=== PATIENT | female | born 1985 | race Caucasian/White ===

== ENCOUNTER → 2017-09-08 | Outpatient (CLI) | payer OTHER ==
[~2017-09-08] MED LIST: ACET325 PO; BUPR100ER PO; CEFU500T30 PO; CIPR500 PO; GABA100 PO; HYDMOR2 PO; KETO10 PO; Klor-Con M1010 MEQ PO; METR500 PO; Nicoderm Cq1 EACH TD; OMEPRAZOLE MAGN20 MG PO; ONDA4ODT MM; OXYC1TAB11; POTCHL20ER PO; SACC250C; SACC250C PO; TRAM50 PO
[2017-09-08 09:29] LABS: BASOPHILS ABSOLUTE AUTO 0.02 K/mm3 (0.00-0.23); BASOPHILS PERCENT AUTO 0 % (0-2); EOSINOPHILS PERCENT AUTO 2 % (0-6); Hematocrit 40.4 % (33.0-51.0); Hemoglobin 14.2 g/dL (11.5-16.0); IMMATURE GRAN ABSOLUTE AUTO 0.02 K/mm3 (0.00-0.10); IMMATURE GRAN PERCENT AUTO 0 % (0-1); LYMPHOCYTES ABSOLUTE AUTO 0.85 K/mm3 (0.84-5.20); LYMPHOCYTES PERCENT AUTO 14 % (21-46); MONOCYTES ABSOLUTE AUTO 0.39 K/mm3 (0.16-1.47); MONOCYTES PERCENT AUTO 6 % (4-13); Mean Corpuscular HGB Conc 35.1 g/dL (31.5-36.5); Mean Corpuscular Volume 100 fL (80-100); Mean Platelet Volume 9.9 fL (9.1-12.4); NEUTROPHILS ABSOLUTE AUTO 4.88 K/mm3 (1.96-9.15); NEUTROPHILS PERCENT AUTO 78 % (41-73); Platelet Count 184 K/mm3 (150-400); RDW Coefficient Variation 12.7 % (11.7-14.2); RDW Standard Deviation 46.5 fL (35.1-46.3); Red Blood Cell Count 4.06 M/mm3 (3.80-5.20); White Blood Cell Count 6.26 K/mm3 (4.00-11.30)
[2017-09-08 09:30] LABS: Alanine Aminotransfer (ALT/SGP 41 U/L (12-78); Albumin, Blood 4.3 g/dL (3.4-5.0); Albumin/Globulin Ratio 1.3 (0.8-1.8); Alk Phos 103 U/L (40-126); Anion Gap 10 mmol/L (6-16); Aspartate Aminotrans (AST/SGOT 76 U/L (12-37); Bilirubin, Total 1.4 mg/dL (0.1-1.0); Blood Urea Nitrogen 14 mg/dL (8-24); Bun/Creatinine Ratio 20.9 (12.0-20.0); CO2, Blood 30 mmol/L (21-32); Calcium, Blood 8.9 mg/dL (8.5-10.1); Chloride, Blood 96 mmol/L (98-108); Creatinine, Blood 0.67 mg/dL (0.40-1.00); Globulin, Blood 3.2 g/dL (2.2-4.0); Glomerular Filtration Rate >60 (60-); Glucose, Blood 120 mg/dL (70-99); Potassium, Blood 3.1 mmol/L (3.5-5.5); Sodium, Blood 136 mmol/L (136-145); Total Protein, Blood 7.5 g/dL (6.4-8.2)
== END ==
LOC: LAB EV 09:14
PROVIDERS: Physician Assistant Medical
DX: R10.84 Generalized abdominal pain (principal)
CPT/HCPCS: 80053; 83690; 85025

== ENCOUNTER → 2017-09-09 | Outpatient (CLI) | payer OTHER ==
[2017-09-09 09:16] LABS: BASOPHILS ABSOLUTE AUTO 0.02 K/mm3 (0.00-0.23); BASOPHILS PERCENT AUTO 1 % (0-2); EOSINOPHILS ABSOLUTE AUTO 0.19 K/mm3 (0.00-0.68); EOSINOPHILS PERCENT AUTO 5 % (0-6); Hematocrit 39.8 % (33.0-51.0); Hemoglobin 13.9 g/dL (11.5-16.0); IMMATURE GRAN ABSOLUTE AUTO 0.01 K/mm3 (0.00-0.10); IMMATURE GRAN PERCENT AUTO 0 % (0-1); LYMPHOCYTES PERCENT AUTO 24 % (21-46); MONOCYTES ABSOLUTE AUTO 0.39 K/mm3 (0.16-1.47); MONOCYTES PERCENT AUTO 10 % (4-13); Mean Corpuscular HGB 35.4 pg (26.0-34.0); Mean Corpuscular HGB Conc 34.9 g/dL (31.5-36.5); Mean Corpuscular Volume 101 fL (80-100); Mean Platelet Volume 10.7 fL (9.1-12.4); NEUTROPHILS PERCENT AUTO 60 % (41-73); Platelet Count 164 K/mm3 (150-400); RDW Coefficient Variation 12.7 % (11.7-14.2); RDW Standard Deviation 47.6 fL (35.1-46.3); Red Blood Cell Count 3.93 M/mm3 (3.80-5.20); White Blood Cell Count 3.81 K/mm3 (4.00-11.30)
[2017-09-09 09:25] LABS: Alanine Aminotransfer (ALT/SGP 34 U/L (12-78); Albumin, Blood 4.1 g/dL (3.4-5.0); Albumin/Globulin Ratio 1.4 (0.8-1.8); Alk Phos 104 U/L (40-126); Anion Gap 12 mmol/L (6-16); Aspartate Aminotrans (AST/SGOT 67 U/L (12-37); Bilirubin, Total 1.7 mg/dL (0.1-1.0); Blood Urea Nitrogen 6 mg/dL (8-24); Bun/Creatinine Ratio 10.3 (12.0-20.0); CO2, Blood 28 mmol/L (21-32); Calcium, Blood 8.9 mg/dL (8.5-10.1); Chloride, Blood 97 mmol/L (98-108); Creatinine, Blood 0.58 mg/dL (0.40-1.00); Glomerular Filtration Rate >60 (60-); Glucose, Blood 105 mg/dL (70-99); Potassium, Blood 3.1 mmol/L (3.5-5.5); Sodium, Blood 137 mmol/L (136-145); Total Protein, Blood 7.1 g/dL (6.4-8.2)
== END | disposition home or self-care (01) ==
LOC: LAB EV 09:06
PROVIDERS: Physician Assistant Surgical
DX: R10.9 Unspecified abdominal pain (principal)
CPT/HCPCS: 80053; 83690; 85025

== ENCOUNTER → 2018-03-03 | Outpatient (CLI) | payer OTHER ==
[~2018-03-03] MED LIST changes: -BUPR100ER PO; -CIPR500 PO; -GABA100 PO; -HYDMOR2 PO; -KETO10 PO; -METR500 PO; -Nicoderm Cq1 EACH TD; -OMEPRAZOLE MAGN20 MG PO; -OXYC1TAB11; -POTCHL20ER PO; -SACC250C; -SACC250C PO; -TRAM50 PO
== END | disposition home or self-care (01) ==
LOC: LAB SHORT 08:30 → LAB EV 08:30
DX: N12 Tubulo-interstitial nephritis, not specified as acute or chronic (principal)
CPT/HCPCS: 87077; 87086; 87186

== ENCOUNTER 2018-03-04 19:46 | Inpatient (IN) | payer OTHER ==
[~2018-03-04] VITALS: Ht 175.3 cm; Wt 64.5 kg
[2018-03-04] MEDS ORDERED: CEFU500T30 PO (19:54)
[2018-03-04 22:25] LABS: Free Thyroxine 1.12 ng/dL (0.70-1.60)
[2018-03-04 22:28] LABS: Thyroid Stimulating Hormone 1.01 uIU/mL (0.360-4.800); Triiodothyronine, Free 1.47 pg/mL (2.18-3.98)
[2018-03-04 22:33] LABS: Magnesium, Blood 1.1 mg/dL (1.6-2.4); Potassium, Blood 1.9 mmol/L (3.5-5.5)
[2018-03-05 00:12] LABS: Source, Urine Clean Catch
[2018-03-05 00:16] LABS: Bilirubin, Urine Neg (Neg); Blood, Urine 2+ (Neg); Glucose Qualitative, Urine Neg (Neg); Ketones, Urine Neg (Neg); Leukocyte Esterase, Urine 2+ (Neg); Nitrite, Urine Neg (Neg); Protein, Urine 2+ (Neg); Specific Gravity, Urine 1.005 (1.003-1.022); Urobilinogen, Urine NORM (Normal); pH, Urine 6.5 (5.0-8.0)
[2018-03-05 00:23] LABS: Appearance, Urine Hazy (Clear); Color, Urine Yellow (P-Yellow)
[2018-03-05 00:24] LABS: Bacteria Few /hpf; Mucus Light (0-Heavy); Red Blood Cells, Urine 0-2 /hpf (0-2); Squamous Epithelial Cells Few /hpf (Few)
[2018-03-05 04:11] LABS: Hematocrit 29.2 % (33.0-51.0); Hemoglobin 10.3 g/dL (11.5-16.0); Mean Corpuscular HGB 35.6 pg (26.0-34.0); Mean Corpuscular HGB Conc 35.3 g/dL (31.5-36.5); Mean Corpuscular Volume 101 fL (80-100); Platelet Count 82 K/mm3 (150-400); RDW Coefficient Variation 13.2 % (11.7-14.2); RDW Standard Deviation 48.6 fL (35.1-46.3); Red Blood Cell Count 2.89 M/mm3 (3.80-5.20); White Blood Cell Count 11.11 K/mm3 (4.00-11.30)
[2018-03-05 04:39] LABS: Alanine Aminotransfer (ALT/SGP 11 U/L (12-78); Albumin, Blood 2.2 g/dL (3.4-5.0); Albumin/Globulin Ratio 0.7 (0.8-1.8); Alk Phos 82 U/L (50-136); Anion Gap 10 mmol/L (6-16); Aspartate Aminotrans (AST/SGOT 26 U/L (12-37); Bilirubin, Total 0.5 mg/dL (0.1-1.0); Blood Urea Nitrogen 11 mg/dL (8-24); Bun/Creatinine Ratio 12.5 (12.0-20.0); CO2, Blood 28 mmol/L (21-32); Calcium, Blood 7.1 mg/dL (8.5-10.1); Chloride, Blood 102 mmol/L (98-108); Creatinine, Blood 0.88 mg/dL (0.40-1.00); Globulin, Blood 3.2 g/dL (2.2-4.0); Glomerular Filtration Rate >60 (60-); Glucose, Blood 85 mg/dL (70-99); Potassium, Blood 2.4 mmol/L (3.5-5.5); Total Protein, Blood 5.4 g/dL (6.4-8.2)
[2018-03-05 04:45] LABS: Sodium, Blood 140 mmol/L (136-145)
[2018-03-06 05:30] LABS: Anion Gap 9 mmol/L (6-16); Blood Urea Nitrogen 8 mg/dL (8-24); Bun/Creatinine Ratio 11.3 (12.0-20.0); CO2, Blood 25 mmol/L (21-32); Calcium, Blood 7.9 mg/dL (8.5-10.1); Chloride, Blood 106 mmol/L (98-108); Creatinine, Blood 0.71 mg/dL (0.40-1.00); Glomerular Filtration Rate >60 (60-); Glucose, Blood 102 mg/dL (70-99); Potassium, Blood 3.3 mmol/L (3.5-5.5); Sodium, Blood 140 mmol/L (136-145)
[2018-03-06] MEDS ORDERED: ONDA4ODT MM (09:20)
[2018-03-06] MEDS ORDERED: Klor-Con M1010 MEQ PO (09:23)
[2018-03-06] MEDS ORDERED: ACET325 PO (09:23)
== END 2018-03-06 11:32 | disposition home or self-care (01) | DRG 872 ==
LOC: ER 19:46 → PCU 19:47
PROVIDERS: Emergency Medicine; Internal Medicine
DX: A41.51 Sepsis due to Escherichia coli [E. coli] (principal); N17.9 Acute kidney failure, unspecified; N39.0 Urinary tract infection, site not specified; N10 Acute pyelonephritis; E87.6 Hypokalemia; E86.0 Dehydration; Z87.440 Personal history of urinary (tract) infections; E83.42 Hypomagnesemia; F17.210 Nicotine dependence, cigarettes, uncomplicated
CPT/HCPCS: 36415; 74176; 80048; 80053; 81001; 83690; 83735; 84132; 84439; 84443; 84481; 84703; 85027; 87086; 93005; 93010; J0696; J1650; J3010; J3475; J3480; J7030

== ENCOUNTER → 2018-03-04 | Outpatient (CLI) | payer OTHER ==
[2018-03-04 18:51] LABS: Hematocrit 36.3 % (33.0-51.0); Hemoglobin 13.2 g/dL (11.5-16.0); Mean Corpuscular HGB 36.3 pg (26.0-34.0); Mean Corpuscular HGB Conc 36.4 g/dL (31.5-36.5); Mean Corpuscular Volume 100 fL (80-100); Mean Platelet Volume 10.9 fL (9.1-12.4); Platelet Count 98 K/mm3 (150-400); RDW Coefficient Variation 13.2 % (11.7-14.2); Red Blood Cell Count 3.64 M/mm3 (3.80-5.20); White Blood Cell Count 17.36 K/mm3 (4.00-11.30)
[2018-03-04 19:05] LABS: Bun/Creatinine Ratio 9.6 (12.0-20.0); Calcium, Blood 8.8 mg/dL (8.5-10.1); Creatinine, Blood 1.36 mg/dL (0.40-1.00)
[2018-03-04 19:15] LABS: Potassium, Blood 1.8 mmol/L (3.5-5.5)
[2018-03-04 19:41] LABS: BAND PERCENT MAN 7 % (0-8); BASOPHILS PERCENT MAN 0 % (0-2); EOSINOPHILS PERCENT MAN 0 % (0-6); LYMPHOCYTES ABSOLUTE MAN 1.38 K/mm3 (0.84-5.20); LYMPHOCYTES PERCENT MAN 8 % (21-46); MONOCYTES PERCENT MAN 11 % (4-13); NEUTROPHILS ABSOLUTE MAN 14.06 K/mm3 (1.96-9.15); SEG NEUTROPHILS PERCENT MAN 74 % (41-73); TOTAL CELLS COUNTED 100
== END ==
LOC: LAB SHORT 18:47 → LAB EV 18:47
PROVIDERS: Nurse Practitioner
DX: N12 Tubulo-interstitial nephritis, not specified as acute or chronic (principal)
CPT/HCPCS: 80048; 85025

== ENCOUNTER 2018-06-23 17:55 | Inpatient (IN) | payer OTHER ==
[~2018-06-23] VITALS: Ht 172.7 cm; Wt 59.0 kg
[~2018-06-23 17:55] MED LIST changes: +CIPR500 PO; +HYDMOR2 PO; +METR500 PO; +Nicoderm Cq1 EACH TD; +OMEPRAZOLE MAGN20 MG PO; +POTCHL20ER PO; +SACC250C PO; +TRAM50 PO
[2018-06-23 19:24] LABS: BASOPHILS ABSOLUTE AUTO 0.05 K/mm3 (0.00-0.23); BASOPHILS PERCENT AUTO 0 % (0-2); EOSINOPHILS ABSOLUTE AUTO 0.42 K/mm3 (0.00-0.68); EOSINOPHILS PERCENT AUTO 3 % (0-6); Hemoglobin 14.4 g/dL (11.5-16.0); IMMATURE GRAN ABSOLUTE AUTO 0.05 K/mm3 (0.00-0.10); IMMATURE GRAN PERCENT AUTO 0 % (0-1); LYMPHOCYTES ABSOLUTE AUTO 2.92 K/mm3 (0.84-5.20); LYMPHOCYTES PERCENT AUTO 20 % (21-46); MONOCYTES ABSOLUTE AUTO 0.86 K/mm3 (0.16-1.47); MONOCYTES PERCENT AUTO 6 % (4-13); Mean Corpuscular HGB 33.8 pg (26.0-34.0); Mean Corpuscular HGB Conc 33.5 g/dL (31.5-36.5); Mean Platelet Volume 9.5 fL (9.1-12.4); NEUTROPHILS ABSOLUTE AUTO 10.26 K/mm3 (1.96-9.15); NEUTROPHILS PERCENT AUTO 71 % (41-73); Platelet Count 501 K/mm3 (150-400); RDW Coefficient Variation 13.8 % (11.7-14.2); Red Blood Cell Count 4.26 M/mm3 (3.80-5.20); White Blood Cell Count 14.56 K/mm3 (4.00-11.30)
[2018-06-23 19:27] LABS: Mean Corpuscular Volume 101 fL (80-100)
[2018-06-23 19:49] LABS: Alanine Aminotransfer (ALT/SGP 15 U/L (12-78); Albumin, Blood 3.7 g/dL (3.4-5.0); Albumin/Globulin Ratio 0.8 (0.8-1.8); Alk Phos 124 U/L (50-136); Anion Gap 12 mmol/L (6-16); Aspartate Aminotrans (AST/SGOT 17 U/L (12-37); Bilirubin, Total 0.2 mg/dL (0.1-1.0); Blood Urea Nitrogen 13 mg/dL (8-24); Bun/Creatinine Ratio 23.2 (12.0-20.0); CO2, Blood 27 mmol/L (21-32); Chloride, Blood 96 mmol/L (98-108); Creatinine, Blood 0.56 mg/dL (0.40-1.00); Globulin, Blood 4.6 g/dL (2.2-4.0); Glomerular Filtration Rate >60 (60-); Glucose, Blood 82 mg/dL (70-99); Potassium, Blood 3.3 mmol/L (3.5-5.5); Sodium, Blood 135 mmol/L (136-145); Total Protein, Blood 8.3 g/dL (6.4-8.2)
[2018-06-24 00:49] LABS: Source, Urine Clean Catch
[2018-06-24 00:50] LABS: Bilirubin, Urine Neg (Neg); Blood, Urine Neg (Neg); Glucose Qualitative, Urine Neg (Neg); Ketones, Urine Neg (Neg); Leukocyte Esterase, Urine 1+ (Neg); Nitrite, Urine Neg (Neg); Protein, Urine 2+ (Neg); Specific Gravity, Urine 1.015 (1.003-1.022); Urobilinogen, Urine NORM (Normal); pH, Urine 6.5 (5.0-8.0)
[2018-06-24 00:51] LABS: Appearance, Urine Clear (Clear); Color, Urine Yellow (P-Yellow)
[2018-06-24 01:02] LABS: Bacteria Rare /hpf; Red Blood Cells, Urine Not Seen /hpf (0-2); Squamous Epithelial Cells Few /hpf (Few); White Blood Cells, Urine Rare /hpf (0-5)
[2018-06-24 05:08] LABS: Hematocrit 35.5 % (33.0-51.0); Hemoglobin 11.7 g/dL (11.5-16.0); Mean Corpuscular HGB 33.4 pg (26.0-34.0); Mean Corpuscular Volume 101 fL (80-100); Mean Platelet Volume 9.8 fL (9.1-12.4); Platelet Count 347 K/mm3 (150-400); RDW Standard Deviation 52.2 fL (35.1-46.3)
[2018-06-24 05:36] LABS: Anion Gap 12 mmol/L (6-16); Blood Urea Nitrogen 9 mg/dL (8-24); Bun/Creatinine Ratio 19.5 (12.0-20.0); CO2, Blood 23 mmol/L (21-32); Calcium, Blood 8.3 mg/dL (8.5-10.1); Chloride, Blood 104 mmol/L (98-108); Creatinine, Blood 0.46 mg/dL (0.40-1.00); Glomerular Filtration Rate >60 (60-); Glucose, Blood 100 mg/dL (70-99); Sodium, Blood 139 mmol/L (136-145)
[2018-06-25 06:35] LABS: BASOPHILS ABSOLUTE AUTO 0.04 K/mm3 (0.00-0.23); BASOPHILS PERCENT AUTO 1 % (0-2); EOSINOPHILS PERCENT AUTO 6 % (0-6); IMMATURE GRAN ABSOLUTE AUTO 0.01 K/mm3 (0.00-0.10); IMMATURE GRAN PERCENT AUTO 0 % (0-1); LYMPHOCYTES ABSOLUTE AUTO 1.55 K/mm3 (0.84-5.20); LYMPHOCYTES PERCENT AUTO 18 % (21-46); MONOCYTES ABSOLUTE AUTO 0.73 K/mm3 (0.16-1.47); MONOCYTES PERCENT AUTO 8 % (4-13); Mean Corpuscular HGB 33.2 pg (26.0-34.0); Mean Corpuscular HGB Conc 32.4 g/dL (31.5-36.5); Mean Corpuscular Volume 103 fL (80-100); Mean Platelet Volume 10.1 fL (9.1-12.4); NEUTROPHILS ABSOLUTE AUTO 5.85 K/mm3 (1.96-9.15); NEUTROPHILS PERCENT AUTO 67 % (41-73); Platelet Count 333 K/mm3 (150-400); RDW Coefficient Variation 13.8 % (11.7-14.2); RDW Standard Deviation 52.2 fL (35.1-46.3); Red Blood Cell Count 3.31 M/mm3 (3.80-5.20); White Blood Cell Count 8.68 K/mm3 (4.00-11.30)
[2018-06-25 06:57] LABS: Percent Saturation 19.7 % (15.0-50.0)
[2018-06-25 07:01] LABS: Alanine Aminotransfer (ALT/SGP 9 U/L (12-78); Albumin, Blood 2.5 g/dL (3.4-5.0); Albumin/Globulin Ratio 0.7 (0.8-1.8); Alk Phos 91 U/L (50-136); Anion Gap 6 mmol/L (6-16); Aspartate Aminotrans (AST/SGOT 11 U/L (12-37); Bilirubin, Total 0.4 mg/dL (0.1-1.0); Blood Urea Nitrogen 12 mg/dL (8-24); Bun/Creatinine Ratio 28.3 (12.0-20.0); CO2, Blood 28 mmol/L (21-32); Calcium, Blood 8.6 mg/dL (8.5-10.1); Chloride, Blood 103 mmol/L (98-108); Creatinine, Blood 0.42 mg/dL (0.40-1.00); Globulin, Blood 3.6 g/dL (2.2-4.0); Glomerular Filtration Rate >60 (60-); Glucose, Blood 96 mg/dL (70-99); Potassium, Blood 4.1 mmol/L (3.5-5.5); Sodium, Blood 137 mmol/L (136-145); Total Protein, Blood 6.1 g/dL (6.4-8.2)
[2018-06-26 11:40] LABS: BASOPHILS ABSOLUTE AUTO 0.04 K/mm3 (0.00-0.23); BASOPHILS PERCENT AUTO 0 % (0-2); EOSINOPHILS PERCENT AUTO 6 % (0-6); Hematocrit 35.9 % (33.0-51.0); Hemoglobin 11.6 g/dL (11.5-16.0); IMMATURE GRAN ABSOLUTE AUTO 0.02 K/mm3 (0.00-0.10); IMMATURE GRAN PERCENT AUTO 0 % (0-1); LYMPHOCYTES ABSOLUTE AUTO 2.38 K/mm3 (0.84-5.20); LYMPHOCYTES PERCENT AUTO 25 % (21-46); MONOCYTES ABSOLUTE AUTO 0.66 K/mm3 (0.16-1.47); MONOCYTES PERCENT AUTO 7 % (4-13); Mean Corpuscular HGB 33.2 pg (26.0-34.0); Mean Corpuscular HGB Conc 32.3 g/dL (31.5-36.5); Mean Corpuscular Volume 103 fL (80-100); Mean Platelet Volume 10.1 fL (9.1-12.4); NEUTROPHILS ABSOLUTE AUTO 5.84 K/mm3 (1.96-9.15); NEUTROPHILS PERCENT AUTO 61 % (41-73); Platelet Count 417 K/mm3 (150-400); RDW Standard Deviation 53.2 fL (35.1-46.3); Red Blood Cell Count 3.49 M/mm3 (3.80-5.20); White Blood Cell Count 9.54 K/mm3 (4.00-11.30)
[2018-06-26 11:52] LABS: Alanine Aminotransfer (ALT/SGP 12 U/L (12-78); Albumin, Blood 2.7 g/dL (3.4-5.0); Albumin/Globulin Ratio 0.6 (0.8-1.8); Alk Phos 117 U/L (50-136); Anion Gap 7 mmol/L (6-16); Aspartate Aminotrans (AST/SGOT 21 U/L (12-37); Bilirubin, Total 0.2 mg/dL (0.1-1.0); Blood Urea Nitrogen 6 mg/dL (8-24); Bun/Creatinine Ratio 12.7 (12.0-20.0); CO2, Blood 28 mmol/L (21-32); Calcium, Blood 9.3 mg/dL (8.5-10.1); Chloride, Blood 104 mmol/L (98-108); Creatinine, Blood 0.47 mg/dL (0.40-1.00); Globulin, Blood 4.4 g/dL (2.2-4.0); Glomerular Filtration Rate >60 (60-); Glucose, Blood 105 mg/dL (70-99); Potassium, Blood 4.3 mmol/L (3.5-5.5); Sodium, Blood 139 mmol/L (136-145); Total Protein, Blood 7.1 g/dL (6.4-8.2)
[2018-06-26] MEDS ORDERED: ACET325 PO (14:08)
[2018-06-26] MEDS ORDERED: KETO10 PO (14:09)
[2018-06-26] MEDS ORDERED: TRAM50 PO (14:09)
== END 2018-06-26 17:06 | disposition home or self-care (01) | DRG 438 ==
LOC: ER 17:55 → MEDS 17:56
PROVIDERS: Internal Medicine; Nurse Practitioner Acute Care; Physician Assistant
PROC: 0DJ08ZZ Inspection of Upper Intestinal Tract, Via Natural or Artificial Opening Endoscopic (ICD-10-PCS; principal; 2018-06-26)
DX: K85.90 Acute pancreatitis without necrosis or infection, unspecified (principal); I81 Portal vein thrombosis; K86.3 Pseudocyst of pancreas; D64.9 Anemia, unspecified; K86.0 Alcohol-induced chronic pancreatitis; E87.6 Hypokalemia; F32.9 Major depressive disorder, single episode, unspecified; F17.210 Nicotine dependence, cigarettes, uncomplicated; K31.84 Gastroparesis; F10.20 Alcohol dependence, uncomplicated
CPT/HCPCS: 36415; 74160; 80048; 80053; 81001; 82728; 83540; 83550; 83690; 85025; 85027; 96374; 96375; 96376; 99285-25; C1751; G0378; J1885; J2405; J2765; J3010; J7030; Q9967

== ENCOUNTER 2018-08-08 00:45 | Day surgery (SDC) | payer OTHER ==
[~2018-08-08 00:45] MED LIST changes: +BUPR100ER PO; +GABA100 PO; +KETO10 PO; +OXYC1TAB11; +SACC250C
[2018-08-08 10:18] LABS: BASOPHILS ABSOLUTE AUTO 0.06 K/mm3 (0.00-0.23); BASOPHILS PERCENT AUTO 1 % (0-2); EOSINOPHILS ABSOLUTE AUTO 0.38 K/mm3 (0.00-0.68); EOSINOPHILS PERCENT AUTO 4 % (0-6); Hematocrit 35.4 % (33.0-51.0); Hemoglobin 11.2 g/dL (11.5-16.0); IMMATURE GRAN ABSOLUTE AUTO 0.04 K/mm3 (0.00-0.10); IMMATURE GRAN PERCENT AUTO 0 % (0-1); LYMPHOCYTES ABSOLUTE AUTO 2.45 K/mm3 (0.84-5.20); LYMPHOCYTES PERCENT AUTO 24 % (21-46); MONOCYTES ABSOLUTE AUTO 0.61 K/mm3 (0.16-1.47); MONOCYTES PERCENT AUTO 6 % (4-13); Mean Corpuscular HGB 30.1 pg (26.0-34.0); Mean Corpuscular HGB Conc 31.6 g/dL (31.5-36.5); Mean Corpuscular Volume 95 fL (80-100); Mean Platelet Volume 9.9 fL (9.1-12.4); NEUTROPHILS ABSOLUTE AUTO 6.74 K/mm3 (1.96-9.15); NEUTROPHILS PERCENT AUTO 66 % (41-73); Platelet Count 317 K/mm3 (150-400); RDW Coefficient Variation 14.7 % (11.7-14.2); RDW Standard Deviation 51.2 fL (35.1-46.3); Red Blood Cell Count 3.72 M/mm3 (3.80-5.20); White Blood Cell Count 10.28 K/mm3 (4.00-11.30)
[2018-08-08 10:40] LABS: C-REACTIVE PROTEIN, EXT RANGE <0.290 mg/dL (0.000-0.300); Magnesium, Blood 1.9 mg/dL (1.6-2.4)
[2018-08-08 10:45] LABS: Alanine Aminotransfer (ALT/SGP 43 U/L (12-78); Albumin, Blood 3.7 g/dL (3.4-5.0); Albumin/Globulin Ratio 0.9 (0.8-1.8); Alk Phos 153 U/L (50-136); Anion Gap 8 mmol/L (6-16); Aspartate Aminotrans (AST/SGOT 24 U/L (12-37); Bilirubin, Total 0.6 mg/dL (0.1-1.0); Blood Urea Nitrogen 14 mg/dL (8-24); Bun/Creatinine Ratio 31.1 (12.0-20.0); CO2, Blood 25 mmol/L (21-32); Calcium, Blood 9.6 mg/dL (8.5-10.1); Chloride, Blood 107 mmol/L (98-108); Creatinine, Blood 0.45 mg/dL (0.40-1.00); Glomerular Filtration Rate >60 (60-); Glucose, Blood 136 mg/dL (70-99); Phosphorus, Blood 4.3 mg/dL (2.5-4.9); Potassium, Blood 3.6 mmol/L (3.5-5.5); Sodium, Blood 140 mmol/L (136-145); Total Protein, Blood 7.7 g/dL (6.4-8.2); Triglycerides 199 mg/dL (30-140)
== END 2018-08-08 10:45 | disposition home or self-care (01) ==
LOC: ATC 00:45
DX: K86.0 Alcohol-induced chronic pancreatitis (principal)
CPT/HCPCS: 36592; 80053; 83735; 84100; 84134; 84478; 85025; 86140

== ENCOUNTER 2018-08-12 07:27 | Inpatient (IN) | payer OTHER ==
[~2018-08-12] VITALS: Ht 175.3 cm; Wt 56.9 kg
[~2018-08-12 07:27] MED LIST changes: -SACC250C
[2018-08-12 08:04] LABS: BASOPHILS ABSOLUTE AUTO 0.05 K/mm3 (0.00-0.23); BASOPHILS PERCENT AUTO 1 % (0-2); EOSINOPHILS ABSOLUTE AUTO 0.44 K/mm3 (0.00-0.68); EOSINOPHILS PERCENT AUTO 5 % (0-6); Hematocrit 34.7 % (33.0-51.0); Hemoglobin 11.1 g/dL (11.5-16.0); IMMATURE GRAN ABSOLUTE AUTO 0.02 K/mm3 (0.00-0.10); IMMATURE GRAN PERCENT AUTO 0 % (0-1); LYMPHOCYTES ABSOLUTE AUTO 2.91 K/mm3 (0.84-5.20); LYMPHOCYTES PERCENT AUTO 30 % (21-46); MONOCYTES ABSOLUTE AUTO 0.85 K/mm3 (0.16-1.47); MONOCYTES PERCENT AUTO 9 % (4-13); Mean Corpuscular HGB 29.8 pg (26.0-34.0); Mean Corpuscular Volume 93 fL (80-100); Mean Platelet Volume 9.8 fL (9.1-12.4); NEUTROPHILS ABSOLUTE AUTO 5.36 K/mm3 (1.96-9.15); NEUTROPHILS PERCENT AUTO 56 % (41-73); Platelet Count 315 K/mm3 (150-400); RDW Coefficient Variation 14.8 % (11.7-14.2); RDW Standard Deviation 51.3 fL (35.1-46.3); Red Blood Cell Count 3.72 M/mm3 (3.80-5.20); White Blood Cell Count 9.63 K/mm3 (4.00-11.30)
[2018-08-12 08:05] LABS: Calcium, Ionized (POC) 1.15 mmol/L (1.10-1.46); Chloride (POC) 103 mmol/L (98-108); Creatinine (POC) 0.4 mg/dL (0.6-1.0); Glucose (ISTAT POC) 105 mg/dL (70-99); Hemoglobin (POC) 11.6 g/dL (12.0-16.0); Potassium (POC) 3.5 mmol/L (3.5-5.5); Sodium (POC) 140 mmol/L (135-148); Total CO2 (POC) 28 mmol/L (21-32)
[2018-08-12 08:23] LABS: Alanine Aminotransfer (ALT/SGP 50 U/L (12-78); Albumin, Blood 3.4 g/dL (3.4-5.0); Albumin/Globulin Ratio 0.9 (0.8-1.8); Alk Phos 137 U/L (50-136); Anion Gap 7 mmol/L (6-16); Aspartate Aminotrans (AST/SGOT 42 U/L (12-37); Beta HCG, Quantitative, Serum <1 mIU/mL (0-3); Bilirubin, Total 0.5 mg/dL (0.1-1.0); Blood Urea Nitrogen 13 mg/dL (8-24); Bun/Creatinine Ratio 27.7 (12.0-20.0); CO2, Blood 28 mmol/L (21-32); Calcium, Blood 8.7 mg/dL (8.5-10.1); Chloride, Blood 107 mmol/L (98-108); Creatinine, Blood 0.47 mg/dL (0.40-1.00); Ethanol (Alcohol), Blood, Med <3 mg/dL; Globulin, Blood 3.7 g/dL (2.2-4.0); Glomerular Filtration Rate >60 (60-); Glucose, Blood 102 mg/dL (70-99); Potassium, Blood 3.5 mmol/L (3.5-5.5); Sodium, Blood 142 mmol/L (136-145); Total Protein, Blood 7.1 g/dL (6.4-8.2)
[2018-08-12 10:20] LABS: U Amphetamine Screen Not Detected; U Barbituate Screen Not Detected; U Benzodiazapine Screen Not Detected; U Buprenorphine Screen Not Detected; U Cannabinoids Screen Not Detected; U Cocaine Screen Not Detected; U Methadone Screen Not Detected; U Methamphetamine Screen Not Detected; U Opiates Screen DETECTED; U Oxycodone Screen Not Detected; U Phencyclidine Screen Not Detected; U Propoxyphene Screen Not Detected
[2018-08-12] MEDS ORDERED: CREON DR 36,001 EACH PO (14:21)
[2018-08-13 05:47] LABS: Anion Gap 7 mmol/L (6-16); Blood Urea Nitrogen 16 mg/dL (8-24); Bun/Creatinine Ratio 34.2 (12.0-20.0); CO2, Blood 30 mmol/L (21-32); Calcium, Blood 8.6 mg/dL (8.5-10.1); Chloride, Blood 103 mmol/L (98-108); Creatinine, Blood 0.47 mg/dL (0.40-1.00); Glomerular Filtration Rate >60 (60-); Glucose, Blood 106 mg/dL (70-99); Phosphorus, Blood 4.6 mg/dL (2.5-4.9); Potassium, Blood 4.2 mmol/L (3.5-5.5); Sodium, Blood 140 mmol/L (136-145); Triglycerides 108 mg/dL (30-140)
[2018-08-14 04:50] LABS: Anion Gap 7 mmol/L (6-16); Blood Urea Nitrogen 17 mg/dL (8-24); Bun/Creatinine Ratio 40.9 (12.0-20.0); CO2, Blood 29 mmol/L (21-32); Calcium, Blood 8.8 mg/dL (8.5-10.1); Chloride, Blood 102 mmol/L (98-108); Creatinine, Blood 0.42 mg/dL (0.40-1.00); Glomerular Filtration Rate >60 (60-); Glucose, Blood 98 mg/dL (70-99); Magnesium, Blood 2.1 mg/dL (1.6-2.4); Phosphorus, Blood 4.7 mg/dL (2.5-4.9); Potassium, Blood 4.7 mmol/L (3.5-5.5); Sodium, Blood 138 mmol/L (136-145)
[2018-08-14] MEDS ORDERED: OXYC5 PO (15:59)
== END 2018-08-14 16:13 | disposition home or self-care (01) | DRG 439 ==
LOC: ER 07:27 → MEDS 13:04 → SURS 14:09
PROVIDERS: Emergency Medicine; Internal Medicine
DX: K85.90 Acute pancreatitis without necrosis or infection, unspecified (principal); K86.3 Pseudocyst of pancreas; K86.1 Other chronic pancreatitis; K21.9 Gastro-esophageal reflux disease without esophagitis; F10.20 Alcohol dependence, uncomplicated; F17.200 Nicotine dependence, unspecified, uncomplicated; Z87.440 Personal history of urinary (tract) infections; Z79.899 Other long term (current) drug therapy
CPT/HCPCS: 74160; 80047; 80048; 80053; 82947; 83690; 83735; 84100; 84478; 84702; 85014; 85025; 96361; 96374; 96375; 96376; 99285-25; G0480; J1170; J2405; J7120; Q9967

== ENCOUNTER 2018-08-15 00:06 | Day surgery (SDC) | payer OTHER ==
[~2018-08-15 00:06] MED LIST changes: +CREON DR 36,001 EACH PO; +OXYC5 PO
== END 2018-08-15 22:45 | disposition home or self-care (01) ==
LOC: ATC 00:06
DX: K86.0 Alcohol-induced chronic pancreatitis (principal); E43 Unspecified severe protein-calorie malnutrition

== ENCOUNTER 2018-08-15 18:52 | Observation (INO) | payer OTHER ==
[~2018-08-15] VITALS: Ht 175.3 cm; Wt 53.9 kg
[2018-08-15 20:17] LABS: BASOPHILS ABSOLUTE AUTO 0.04 K/mm3 (0.00-0.23); BASOPHILS PERCENT AUTO 0 % (0-2); EOSINOPHILS ABSOLUTE AUTO 0.44 K/mm3 (0.00-0.68); EOSINOPHILS PERCENT AUTO 5 % (0-6); Hematocrit 36.3 % (33.0-51.0); Hemoglobin 11.7 g/dL (11.5-16.0); IMMATURE GRAN ABSOLUTE AUTO 0.02 K/mm3 (0.00-0.10); IMMATURE GRAN PERCENT AUTO 0 % (0-1); LYMPHOCYTES ABSOLUTE AUTO 3.51 K/mm3 (0.84-5.20); LYMPHOCYTES PERCENT AUTO 36 % (21-46); MONOCYTES ABSOLUTE AUTO 0.43 K/mm3 (0.16-1.47); MONOCYTES PERCENT AUTO 4 % (4-13); Mean Corpuscular HGB 29.8 pg (26.0-34.0); Mean Corpuscular HGB Conc 32.2 g/dL (31.5-36.5); Mean Corpuscular Volume 93 fL (80-100); Mean Platelet Volume 9.7 fL (9.1-12.4); NEUTROPHILS ABSOLUTE AUTO 5.42 K/mm3 (1.96-9.15); NEUTROPHILS PERCENT AUTO 55 % (41-73); Platelet Count 332 K/mm3 (150-400); RDW Standard Deviation 51.1 fL (35.1-46.3); Red Blood Cell Count 3.92 M/mm3 (3.80-5.20); White Blood Cell Count 9.86 K/mm3 (4.00-11.30)
[2018-08-15 20:51] LABS: Alanine Aminotransfer (ALT/SGP 35 U/L (12-78); Albumin, Blood 3.6 g/dL (3.4-5.0); Albumin/Globulin Ratio 0.8 (0.8-1.8); Alk Phos 148 U/L (50-136); Anion Gap 11 mmol/L (6-16); Aspartate Aminotrans (AST/SGOT 19 U/L (12-37); Bilirubin, Total 0.2 mg/dL (0.1-1.0); Blood Urea Nitrogen 10 mg/dL (8-24); Bun/Creatinine Ratio 19.9 (12.0-20.0); CO2, Blood 24 mmol/L (21-32); Chloride, Blood 108 mmol/L (98-108); Ethanol (Alcohol), Blood, Med 293 mg/dL; Globulin, Blood 4.5 g/dL (2.2-4.0); Glomerular Filtration Rate >60 (60-); Glucose, Blood 99 mg/dL (70-99); Potassium, Blood 3.5 mmol/L (3.5-5.5); Salicylate <1.7 mg/dL (2.8-20.0); Sodium, Blood 143 mmol/L (136-145); Total Protein, Blood 8.1 g/dL (6.4-8.2)
[2018-08-15 20:56] LABS: Source, Urine Clean Catch
[2018-08-15 20:57] LABS: Acetaminophen, Random <2.0 ug/mL (10.0-30.0)
[2018-08-15 20:58] LABS: Bilirubin, Urine Neg (Neg); Blood, Urine 1+ (Neg); Glucose Qualitative, Urine Neg (Neg); Ketones, Urine Neg (Neg); Leukocyte Esterase, Urine Neg (Neg); Nitrite, Urine Neg (Neg); Protein, Urine 1+ (Neg); Specific Gravity, Urine 1.015 (1.003-1.022); Urobilinogen, Urine NORM (Normal)
[2018-08-15 21:07] LABS: Appearance, Urine Clear (Clear); Color, Urine Yellow (P-Yellow)
[2018-08-15 21:09] LABS: Squamous Epithelial Cells Few /hpf (Few)
[2018-08-15 21:10] LABS: Bacteria Rare /hpf; Hyaline Casts Rare /lpf (0-2); Mucus Light (0-Heavy); Red Blood Cells, Urine 0-2 /hpf (0-2)
[2018-08-15 21:12] LABS: U Amphetamine Screen Not Detected; U Barbituate Screen Not Detected; U Benzodiazapine Screen Not Detected; U Buprenorphine Screen Not Detected; U Cannabinoids Screen Not Detected; U Cocaine Screen Not Detected; U Methadone Screen Not Detected; U Methamphetamine Screen Not Detected; U Opiates Screen DETECTED; U Oxycodone Screen Not Detected; U Phencyclidine Screen Not Detected; U Propoxyphene Screen Not Detected
[2018-08-17 05:05] LABS: BASOPHILS ABSOLUTE AUTO 0.03 K/mm3 (0.00-0.23); BASOPHILS PERCENT AUTO 1 % (0-2); EOSINOPHILS ABSOLUTE AUTO 0.35 K/mm3 (0.00-0.68); EOSINOPHILS PERCENT AUTO 6 % (0-6); Hematocrit 29.3 % (33.0-51.0); Hemoglobin 9.4 g/dL (11.5-16.0); IMMATURE GRAN ABSOLUTE AUTO 0.01 K/mm3 (0.00-0.10); IMMATURE GRAN PERCENT AUTO 0 % (0-1); LYMPHOCYTES PERCENT AUTO 42 % (21-46); MONOCYTES ABSOLUTE AUTO 0.33 K/mm3 (0.16-1.47); MONOCYTES PERCENT AUTO 6 % (4-13); Mean Corpuscular HGB 29.9 pg (26.0-34.0); Mean Corpuscular HGB Conc 32.1 g/dL (31.5-36.5); Mean Corpuscular Volume 93 fL (80-100); Mean Platelet Volume 9.8 fL (9.1-12.4); NEUTROPHILS ABSOLUTE AUTO 2.47 K/mm3 (1.96-9.15); NEUTROPHILS PERCENT AUTO 45 % (41-73); Platelet Count 191 K/mm3 (150-400); RDW Coefficient Variation 14.5 % (11.7-14.2); RDW Standard Deviation 49.7 fL (35.1-46.3); Red Blood Cell Count 3.14 M/mm3 (3.80-5.20); White Blood Cell Count 5.49 K/mm3 (4.00-11.30)
[2018-08-17 05:39] LABS: Magnesium, Blood 1.9 mg/dL (1.6-2.4)
[2018-08-17 05:43] LABS: Alanine Aminotransfer (ALT/SGP 21 U/L (12-78); Albumin, Blood 2.8 g/dL (3.4-5.0); Alk Phos 115 U/L (50-136); Anion Gap 8 mmol/L (6-16); Aspartate Aminotrans (AST/SGOT 15 U/L (12-37); Bilirubin, Total 0.6 mg/dL (0.1-1.0); Blood Urea Nitrogen 12 mg/dL (8-24); CO2, Blood 27 mmol/L (21-32); Calcium, Blood 8.6 mg/dL (8.5-10.1); Chloride, Blood 105 mmol/L (98-108); Creatinine, Blood 0.55 mg/dL (0.40-1.00); Glomerular Filtration Rate >60 (60-); Glucose, Blood 109 mg/dL (70-99); Potassium, Blood 3.5 mmol/L (3.5-5.5); Sodium, Blood 140 mmol/L (136-145)
[2018-08-17 05:45] LABS: Albumin/Globulin Ratio 0.8 (0.8-1.8); Globulin, Blood 3.3 g/dL (2.2-4.0); Total Protein, Blood 6.1 g/dL (6.4-8.2)
[2018-08-18] MEDS ORDERED: DISU250 PO (14:07)
[2018-08-18] MEDS ORDERED: THIA100 PO (14:08)
[2018-08-18] MEDS ORDERED: FOLI1 PO (14:08)
== END 2018-08-18 15:20 | disposition home or self-care (01) ==
LOC: ER 18:52 → MEDS 18:53 → ER 08-16 01:07 → MEDS 08-16 01:07 → ENPENDDIS 08-18 14:59 → MEDS 08-18 15:20
PROVIDERS: Internal Medicine; Physician Assistant
DX: R45.851 Suicidal ideations (principal); F33.2 Major depressive disorder, recurrent severe without psychotic features; F10.20 Alcohol dependence, uncomplicated; K21.9 Gastro-esophageal reflux disease without esophagitis; K85.90 Acute pancreatitis without necrosis or infection, unspecified; K86.1 Other chronic pancreatitis; F17.210 Nicotine dependence, cigarettes, uncomplicated; K86.2 Cyst of pancreas; Z79.899 Other long term (current) drug therapy
CPT/HCPCS: 80053; 81001; 81025; 83690; 83735; 84443; 85025; 99285; G0480; J1170; J1885; J2405; J2550; J7120; Q3014

== ENCOUNTER 2018-08-19 14:15 | Observation (INO) | payer OTHER ==
[~2018-08-19] VITALS: Ht 175.3 cm; Wt 57.2 kg
[~2018-08-19 14:15] MED LIST changes: +DISU250 PO; +FOLI1 PO; +THIA100 PO
[2018-08-19 15:17] LABS: Source, Urine Clean Catch
[2018-08-19 15:33] LABS: BASOPHILS ABSOLUTE AUTO 0.03 K/mm3 (0.00-0.23); BASOPHILS PERCENT AUTO 0 % (0-2); EOSINOPHILS ABSOLUTE AUTO 0.49 K/mm3 (0.00-0.68); EOSINOPHILS PERCENT AUTO 6 % (0-6); Hematocrit 34.1 % (33.0-51.0); Hemoglobin 10.7 g/dL (11.5-16.0); IMMATURE GRAN ABSOLUTE AUTO 0.01 K/mm3 (0.00-0.10); IMMATURE GRAN PERCENT AUTO 0 % (0-1); LYMPHOCYTES ABSOLUTE AUTO 3.48 K/mm3 (0.84-5.20); LYMPHOCYTES PERCENT AUTO 44 % (21-46); MONOCYTES ABSOLUTE AUTO 0.44 K/mm3 (0.16-1.47); MONOCYTES PERCENT AUTO 6 % (4-13); Mean Corpuscular HGB 29.1 pg (26.0-34.0); Mean Corpuscular HGB Conc 31.4 g/dL (31.5-36.5); Mean Corpuscular Volume 93 fL (80-100); Mean Platelet Volume 9.7 fL (9.1-12.4); NEUTROPHILS ABSOLUTE AUTO 3.55 K/mm3 (1.96-9.15); NEUTROPHILS PERCENT AUTO 44 % (41-73); Platelet Count 293 K/mm3 (150-400); RDW Coefficient Variation 14.8 % (11.7-14.2); RDW Standard Deviation 50.4 fL (35.1-46.3); Red Blood Cell Count 3.68 M/mm3 (3.80-5.20)
[2018-08-19 15:37] LABS: Alanine Aminotransfer (ALT/SGP 30 U/L (12-78); Albumin, Blood 3.5 g/dL (3.4-5.0); Albumin/Globulin Ratio 0.9 (0.8-1.8); Alk Phos 126 U/L (50-136); Anion Gap 8 mmol/L (6-16); Aspartate Aminotrans (AST/SGOT 16 U/L (12-37); Bilirubin, Total 0.1 mg/dL (0.1-1.0); Blood Urea Nitrogen 9 mg/dL (8-24); Bun/Creatinine Ratio 16.5 (12.0-20.0); CO2, Blood 28 mmol/L (21-32); Calcium, Blood 8.7 mg/dL (8.5-10.1); Chloride, Blood 110 mmol/L (98-108); Creatinine, Blood 0.55 mg/dL (0.40-1.00); Ethanol (Alcohol), Blood, Med 244 mg/dL; Globulin, Blood 4.1 g/dL (2.2-4.0); Glomerular Filtration Rate >60 (60-); Glucose, Blood 92 mg/dL (70-99); Potassium, Blood 3.3 mmol/L (3.5-5.5); Salicylate <1.7 mg/dL (2.8-20.0); Sodium, Blood 146 mmol/L (136-145); Total Protein, Blood 7.6 g/dL (6.4-8.2)
[2018-08-19 15:40] LABS: Thyroid Stimulating Hormone 0.375 uIU/mL (0.360-4.800)
[2018-08-19 15:43] LABS: Appearance, Urine Clear (Clear); Bilirubin, Urine Neg (Neg); Blood, Urine Neg (Neg); Color, Urine Yellow (P-Yellow); Glucose Qualitative, Urine Neg (Neg); Ketones, Urine Neg (Neg); Leukocyte Esterase, Urine 1+ (Neg); Nitrite, Urine Neg (Neg); Protein, Urine 1+ (Neg); Urobilinogen, Urine NORM (Normal)
[2018-08-19 15:44] LABS: Acetaminophen, Random <2.0 ug/mL (10.0-30.0)
[2018-08-19 15:59] LABS: Bacteria Rare /hpf; Red Blood Cells, Urine Not Seen /hpf (0-2); Squamous Epithelial Cells Few /hpf (Few); White Blood Cells, Urine 0-2 /hpf (0-5)
[2018-08-19 16:03] LABS: U Amphetamine Screen Not Detected; U Barbituate Screen Not Detected; U Benzodiazapine Screen DETECTED; U Buprenorphine Screen Not Detected; U Cannabinoids Screen Not Detected; U Cocaine Screen Not Detected; U Methadone Screen Not Detected; U Methamphetamine Screen Not Detected; U Opiates Screen Not Detected; U Oxycodone Screen Not Detected; U Phencyclidine Screen Not Detected; U Propoxyphene Screen Not Detected
[2018-08-20 16:42] LABS: BASOPHILS ABSOLUTE AUTO 0.02 K/mm3 (0.00-0.23); BASOPHILS PERCENT AUTO 0 % (0-2); EOSINOPHILS ABSOLUTE AUTO 0.38 K/mm3 (0.00-0.68); EOSINOPHILS PERCENT AUTO 4 % (0-6); Hemoglobin 10.6 g/dL (11.5-16.0); IMMATURE GRAN ABSOLUTE AUTO 0.02 K/mm3 (0.00-0.10); IMMATURE GRAN PERCENT AUTO 0 % (0-1); LYMPHOCYTES ABSOLUTE AUTO 2.18 K/mm3 (0.84-5.20); LYMPHOCYTES PERCENT AUTO 24 % (21-46); MONOCYTES ABSOLUTE AUTO 0.57 K/mm3 (0.16-1.47); MONOCYTES PERCENT AUTO 6 % (4-13); Mean Corpuscular HGB 29.9 pg (26.0-34.0); Mean Corpuscular HGB Conc 32.1 g/dL (31.5-36.5); Mean Corpuscular Volume 93 fL (80-100); Mean Platelet Volume 9.6 fL (9.1-12.4); NEUTROPHILS ABSOLUTE AUTO 5.99 K/mm3 (1.96-9.15); NEUTROPHILS PERCENT AUTO 66 % (41-73); Platelet Count 244 K/mm3 (150-400); RDW Coefficient Variation 14.5 % (11.7-14.2); RDW Standard Deviation 50.2 fL (35.1-46.3); Red Blood Cell Count 3.54 M/mm3 (3.80-5.20); White Blood Cell Count 9.16 K/mm3 (4.00-11.30)
[2018-08-20 16:59] LABS: Alanine Aminotransfer (ALT/SGP 33 U/L (12-78); Albumin, Blood 3.4 g/dL (3.4-5.0); Albumin/Globulin Ratio 0.9 (0.8-1.8); Alk Phos 131 U/L (50-136); Anion Gap 8 mmol/L (6-16); Aspartate Aminotrans (AST/SGOT 25 U/L (12-37); Bilirubin, Total 0.3 mg/dL (0.1-1.0); Blood Urea Nitrogen 15 mg/dL (8-24); Bun/Creatinine Ratio 23.2 (12.0-20.0); CO2, Blood 27 mmol/L (21-32); Calcium, Blood 9.2 mg/dL (8.5-10.1); Chloride, Blood 104 mmol/L (98-108); Creatinine, Blood 0.65 mg/dL (0.40-1.00); Globulin, Blood 3.9 g/dL (2.2-4.0); Glomerular Filtration Rate >60 (60-); Glucose, Blood 92 mg/dL (70-99); Potassium, Blood 3.7 mmol/L (3.5-5.5); Sodium, Blood 139 mmol/L (136-145); Total Protein, Blood 7.3 g/dL (6.4-8.2)
--- NOTE | 2018-08-21 01:00 | NUR ---
PT ARRIVES TO ICU ROOM 9 FROM ED VIA W/C AT 0003. PT ALERT AND ORIENTED. PLEASANT AND COOPERATIVE WITH CARE AND ASSESSMENT. VERBAL AGREEMENT NOT TO TRY AND HARM HERSELF WHILE IN UNIT. PT STATES THAT HER ACTIONS THAT BROUGHT HER TO THE HOSPITAL, WAS A SPUR OF THE MOMENT ACTION. "ALCOHOL AND ANTIDEPRRESANTS ARE A BAD COMBINATION." 1:1 SITTER FOR PT SAFETY. WILL REVIEW CHART AND PLAN OF CARE FOR THIS PT.
[2018-08-21 05:01] LABS: Anion Gap 7 mmol/L (6-16); Blood Urea Nitrogen 16 mg/dL (8-24); Bun/Creatinine Ratio 30.5 (12.0-20.0); CO2, Blood 27 mmol/L (21-32); Calcium, Blood 8.2 mg/dL (8.5-10.1); Chloride, Blood 106 mmol/L (98-108); Creatinine, Blood 0.53 mg/dL (0.40-1.00); Glomerular Filtration Rate >60 (60-); Glucose, Blood 95 mg/dL (70-99); Potassium, Blood 3.2 mmol/L (3.5-5.5); Sodium, Blood 140 mmol/L (136-145)
--- NOTE | 2018-08-21 06:12 | NUR ---
PT HAS BEEN RESTING IN BED. REMAINS COOPERATIVE WITH CARE. SITTER FOR 1:1 OBSERVATION FOR PT SAFETY. NO VOICED IDEATIONS OR ACTS OF SELF HARM NOTED. WILL CONTINUE TO MONITOR PT, AND WILL REPORT OFF TO ONCOMING RN.
--- NOTE | 2018-08-21 07:25 | NUR ---
ASSUMED CARE: PT RESTING IN BED AT THIS TIME. SITTER AT BEDSIDE. VSS. NO ACUTE NEEDS OR CONCERNS AT THIS TIME
--- NOTE | 2018-08-21 09:36 | NUR ---
PT REQUESTED THAT MOTHER BE NOTIFIED OF CHANGE OF ROOM AND GIVEN AN UPDATE. MOTHER STATES SHE WILL BE IN TO SEE PT LATER TODAY. PT IS CURRENTLY RESTING QUIETLY
--- NOTE | 2018-08-21 10:27 | NUR ---
CALL TO ED FOR FIND OUT ABOUT PSYCH AVAILABILITY. NO IN HOUSE PSYCH AVAILABLE UNTIL AUGUST 24. MANAGER REGULATORY AWARE
--- NOTE | 2018-08-21 10:51 | NUR ---
PT MEDICATED FOR PAIN. SITTER AT BEDSIDE. CONTINUES TO DENY S.I. TOLD PT THAT IF THAT CHANGES SHE NEEDS TO LET US KNOW AND THAT WE ARE NOT HERE TO INSIDE FINISHER HER BUT TO PROTECT HER AND HELP KEEP HER SAFE. DISCUSSED WITH PT POLICIES FOR 2 MD HOLD PT'S WITH LIMITED VISITORS AND PHONE CALLS. PT AGREEABLE TO THIS. PT ASKED IF MOTHER AWARE OF LOCATION. PT TOLD THAT MOTHER WAS CALLED AND LOCATION WAS GIVEN. NO FURTHER NEEDS OR CONCERNS AT THIS TIME
--- NOTE | 2018-08-21 11:43 | NUR ---
COMPASS WORKER IN TO SEE PT. UPDATE GIVEN
--- NOTE | 2018-08-21 17:55 | NUR ---
SHIFT SUMMARY: PT HAS BEEN RESTING IN ROOM, INDEPENDENT. SITTER AT BEDSIDE. DENIES SI T/O SHIFT. MEDICATED MULTIPLE TIMES FOR ABDOMINAL PAIN. HAS BEEN ABLE TO TOLERATE BITES OF FOOD BUT NOT LARGE VOLUMES. MEDICATED X1 FOR NAUSEA BUT NO VOMITING. MOTHER CAME BY TO VISIT DURING THE DAY. NO ACUTE CHANGES OR NEEDS THIS SHIFT.
--- NOTE | 2018-08-21 19:15 | NUR ---
ASSUMING CARE OF PT AT THIS TIME. PT REPORT RECEIVED AT BEDSIDE WITH OFFGOING NURSE, KATHIE QUISPE. PT LAYING IN BED, WATCHING TELEVISION, AND TALKING WITH SITTER. VS STABLE - SEE VS FS. PT DOES NOT APPEAR TO BE IN DISTRESS AT THIS TIME. WILL REVIEW PLAN OF CARE.
--- NOTE | 2018-08-21 19:30 | NUR ---
ASSESSMENT PT CALM, QUIET, COOPERATIVE, RESPONDS TO VERBAL STIMULI, SPONT OPENS EYES, A&O X4, SMILING AND TALKING WITH STAFF. SENSATION INTACT. DENIES N/T. PT ZIMMER. NO WEAKNESS NOTED WITH MOVEMENT. PT TURNS SELF IN BED. PT AMBULATES SELF. PT C/O ABD PAIN - MEDICATED WITH PAIN MEDS PER PHYSICIAN'S ORDER. SI PRECUATIONS. PT DENIES SI AT THIS TIME. 1:1 SITTER. 2MD HOLD. PT STATES, "I WANT TO GO TO AN OUTPATIENT FACILITY INSTEAD OF AN INPATIENT FACILITY FOR [place]". "I WANT MY MOM HERE NEXT TIME I TALK TO [employer] BECAUSE I COULDN'T ANSWER ALL THE QUESTIONS". LUNGS CLEAR. PT ON RA. OXY SAT >95%. RR 12. DENIES SOB. NO COUGHING. AFEBRILE. HR 70. BP STABLE - SEE VS FS. STRONG PULSES. WARM, PINK SKIN. ACTIVE BT X4 QUADRANTS. ABD TENDER WITH AND WITHOUT PALPATION, SOFT. NO N/V. NO BM. PT VOIDS. PT HAS BATHROOM PRIVELEGES. PICC CELSO. TPN AT 200 ML/HR.
[2018-08-22 04:11] LABS: Albumin, Blood 2.6 g/dL (3.4-5.0); Anion Gap 7 mmol/L (6-16); Blood Urea Nitrogen 16 mg/dL (8-24); Bun/Creatinine Ratio 40.2 (12.0-20.0); CO2, Blood 27 mmol/L (21-32); Calcium, Blood 8.1 mg/dL (8.5-10.1); Chloride, Blood 105 mmol/L (98-108); Glomerular Filtration Rate >60 (60-); Glucose, Blood 119 mg/dL (70-99); Magnesium, Blood 2.1 mg/dL (1.6-2.4); Phosphorus, Blood 4.1 mg/dL (2.5-4.9); Potassium, Blood 4.1 mmol/L (3.5-5.5); Sodium, Blood 139 mmol/L (136-145)
--- NOTE | 2018-08-22 04:25 | NUR ---
SHIFT ASSESSMENT NO ACUTE CHANGES NOTED T/O SHIFT. PT SLEPT T/O SHIFT. PT CALM, QUIET, COOPERATIVE, RESOPNDS TO VERBAL STIMULI, SPONT OPENS EYES, A&O X4, SMILING AND TALKING WITH STAFF. SENSATION INTACT. PT ZIMMER. NO WEAKNESS NOTED WITH MOVEMENT. PT TURNS SELF IN BED. PT AMBULATES SELF. PT C/O ABD PAIN T/O SHIFT. CONT TO ASSESS FOR PAIN/DISCOMFORT AND MEDICATED WITH PAIN MEDS PER PHYSICIAN'S ORDER / UTILIZED NONPHARM METHODS. PT DENIES SI. 1:1 SITTER. 2MD HOLD. LUNGS CLEAR. PT ON RA. OXY SAT >95%. RR 12. DENIES SOB. NO COUGHING. AFEBRILE. HR 60'S TO 70'S. BP STABLE - SEE VS FS. STRONG PULSES. WARM, PINK SKIN. ACTIVE BT X4 QUADRANTS. ABD TENDER WITH AND WITHOUT PALPATION, SOFT. PT C/O NAUSEA THIS AM. PT STATES NAUSEA RESOLVED AFTER ADMINISTERING ZOFRAN. NO VOMITING. PT VOIDS. PT HAS BATHROOM PRIVELEGES. PICC CELSO - SL. CIWA REMAINED O T/O SHIFT. WILL CONT TO MONITOR PT AND WILL PROVIDE BEDSIDE REPORT TO ONCOMING NURSE THIS AM.
--- NOTE | 2018-08-22 17:41 | NUR ---
SHIFT SUMMARY PT RESTING IN BED THROUGHOUT THE DAY. VSS. ALERT AND ORIENTED X3. C/O 3-7/10 ABDOMINAL PAIN, MEDICATED WITH PRN PAIN MEDS. TOLERATED PUDDING THIS AFTERNOON WITH MINIMAL ABDOMINAL PAIN. STATES LIQUIDS SEEMS TO HURT MORE. TPN STARTED THIS EVENING TO RUN INTO RIGHT ARM PICC LINE THROUGHOUT THE NIGHT. CIWA 0-2 TODAY. PT DENIES SUICIDAL IDEATIONS THROUGHOUT THE DAY. PT PLEASANT AND TALKATIVE WITH STAFF AND 1:1 SITTERS. AMBULATING INDEPENDENTLY IN ROOM. WILL CONTINUE TO MONITOR. TELEPSYCH EVAL APPT THIS EVENING AT 1800, MOTHER SUPPOSED TO BE PRESENT.
--- NOTE | 2018-08-22 19:30 | NUR ---
2 MD HOLD DCD AND 1:1 SITTER RELEASED. REVIEWED PROTOCOL AND WILL OBSERVE FOR ANY ACUTE EMOTIONAL ISSUES AND AT THIS TIME VERY APPROPRIATE AND CONVERSIVE W/ CONPLETE UNDERSTANDING. VERY CALM. NO S/S OF DT'S. REQUESTS PRIVACY TO HAVE BM ON BSC AND REMINDED SHE WILL NOT HAVE DOOR COMPLETELY CLOSED REQUESTED, BUT COMPLETE CURTAIN PRIVACY . REFUSED ANY FOOD ITEMS . NO GI DISTRESS REPORTED. DISCUSSES THAT WHILE TPN ESTABLISHED AGAIN SHE EXPECTS TO HAVE A SOAKED BED W/ SWEAT THIS HAS HAPPENED BEFORE. REQ ONLY TORDOL AND REPORTS SHE WOULD RATHER NOT HAVE NARCOTICS IF POSSIBLE FOR THIS MID UPPER ABD PAIN SHE HAS BEEN HAVING. PICC LINE DSG WNL AND NOTED RED PORT DOES NOT FLUSH.DID NOT DRAW BACK .
--- NOTE | 2018-08-22 23:00 | NUR ---
ASSUMING CARE OF PT AT THIS TIME. PT REPORT RECEIVED AT BEDSIDE WITH OFFGOING NURSE, EVA QUISPE. PT LAYING IN BED, SLEEPING UPON ENTERING THE ROOM. VS STABLE - SEE VS FS. PT DOES NOT APPEAR TO BE IN DISTRESS AT THIS TIME. WILL REVIEW PLAN OF CARE.
--- NOTE | 2018-08-22 23:15 | NUR ---
ASSESSMENT PT CALM, QUIET, COOPEARTIVE, RESOPDNS TO VERBAL STIMULI, SPONT OPENS EYES, A&O X4, SMILING AND TALKING WITH STAFF. SENSATION INTACT. DENIES N/T. PT ZIMMER. NO WEAKNESS NOTED WITH MOVEMENT. PT TURNS SELF IN BED. PT AMBULATES SELF. PT STATES ABD PAIN IS TOLERABLE AT THIS TIME. PER REPORT: 2 MD HOLD AND 1:1 SITTER D/C THIS SHIFT. LUNGS CLEAR. PT ON RA. OXYSAT >95%. RR 12. DENIES SOB. NO COUGHIGN. AFEBRILE. HR 90. BP STABLE - SEE VS FS. STRONG PUSLES. WARM, PINK SKIN. SLIGHT DIAPHORESIS. PT C/O "SWEATING AFTER I START THE TPN". ACTIVE BT X4 QUADRANTS. PT STATES "MY ABD TENDERNESS WAS BETTER TODAY". ABD SOFT. NO N/V. NO BM. PER PT, SHE TOLERATED REGULAR DIET WITHOUT INCREASED ABD PAIN. PT VOIDS. PT HAS BATHROOM PRIVELEGES. PICC CELSO. TPN AT 200 ML/HR. CIWA 1.
[2018-08-23 04:14] LABS: Anion Gap 6 mmol/L (6-16); Blood Urea Nitrogen 19 mg/dL (8-24); Bun/Creatinine Ratio 37.9 (12.0-20.0); CO2, Blood 29 mmol/L (21-32); Calcium, Blood 8.5 mg/dL (8.5-10.1); Chloride, Blood 105 mmol/L (98-108); Glomerular Filtration Rate >60 (60-); Glucose, Blood 114 mg/dL (70-99); Phosphorus, Blood 4.9 mg/dL (2.5-4.9); Potassium, Blood 4.6 mmol/L (3.5-5.5); Sodium, Blood 140 mmol/L (136-145)
--- NOTE | 2018-08-23 04:51 | NUR ---
SHIFT ASSESSMENT NO ACUTE CHANGES NOTED T/O SHIFT. PT SLEPT T/O SHIFT. PT CALM, QUIET, COOPERATIVE, RESPONDS TO VERBAL STIMULI, SPONT OPENS EYES, A&O X4, SMILING AND TALKING TO STAFF, DENIES SI. THIS PM, PT STATES DESIRE TO BE TRANSFERRED TO INPATIENT PSYCH FACILITY. SENSATION INTACT. DENIES N/T. PT ZIMMER. NO WEAKNESS NOTED WITH MOVEMENT. PT TURNS SELF IN BED. PT AMBULATES SELF. PT C/O OF OCC ABD PAIN THAT RADIATES TO "LEFT SIDE". CONT TO ASSESS FOR PAIN/DISCOMFORT AND MEDICATED WITH PAIN MEDS PER PHYSICIAN'S ORDER / UTILIZED NONPHARM METHODS. LUNGS CLEAR. PT ON RA. OXY SAT >95%. RR 12. DENIES SOB. NO COUGHING. AFEBRILE. HR 80'S TO 90'S. BP STABLE - SEE VS FS. STRONG PULSES. WARM, PINK SKIN. SLIGHT DIAPHORESIS. PT C/O "SWEATING AFTER I START THE TPN". ACTIVE BT X4 QUADRANTS. ABD SOFT. PT STATES "MY ABD TENDERNESS WAS BETTER TODAY", BUT C/O OCC ABD TENDERNESS. NO N/V. PT VOIDS. PT HAS BATHROOM PRIVELEGES. PICC CELSO - SL. WILL CONT TO MONITOR PT AND WILL PROVIDE BEDSIDE REPORT TO ONCOMING NURSE THIS AM.
--- NOTE | 2018-08-23 08:30 | NUR ---
INITIAL ASSESSMENT PATIENT ALERT AND ORIENTED X 4, AFEBRILE. PATIENT INDEPENDENT IN ROOM. PATIENT STATES MOST OF HER PAIN IS IN THE MIDDLE ABDOMEN TO LEFT SIDE AND LEFT FLANK. PATIENT STATES PAIN HAS BEEN WORSE WHILE TPN INFUSING. PATIENT SATTING WELL ON RA. LUNGS CLEAR T/O. PATIENT VSS. ABDOMEN TENDER WITH HYPERACTIVE BS. WNL. SKIN WNL. IV FLUSHED AND SALINE LOCKED. BED LOW, CALL LIGHT IN REACH. WILL CONTINUE TO MONITOR.
--- NOTE | 2018-08-23 10:23 | NUR ---
DIETARY HERE TO SEE PATIENT.
--- NOTE | 2018-08-23 10:37 | NUR ---
CASE MANAGEMENT IN TO SPEAK WITH PATIENT.
--- NOTE | 2018-08-23 12:25 | NUR ---
PATIENT DISCHARGED FROM UNIT TO HOME. PATIENT'S MOTHER CAME TO ROOM TO PICK HER UP. DISCHARGE INFORMATION GIVEN. QUESTIONS ANSWERED. PATIENT STATED THAT SHE UNDERSTOOD DISCHARGE PACKET.
[2018-08-27] MEDS ORDERED: CREON DR 36,001 EACH PO (15:47)
[2018-08-27] MEDS ORDERED: FOLI1 PO (15:47)
[2018-08-27] MEDS ORDERED: ACET325 PO (15:48)
[2018-08-29] MEDS ORDERED: ONDA4ODT MM (12:20)
== END 2018-08-23 12:25 | disposition home or self-care (01) ==
LOC: ER 14:15 → EOR 14:16 → ICUW 14:16 → EOR 14:16 → ER 14:16 → ICUW 23:55
PROVIDERS: Emergency Medicine; Internal Medicine; ADMIT Hospitalist
DX: K85.20 Alcohol induced acute pancreatitis without necrosis or infection (principal); K86.0 Alcohol-induced chronic pancreatitis; R45.851 Suicidal ideations; F32.9 Major depressive disorder, single episode, unspecified; F17.210 Nicotine dependence, cigarettes, uncomplicated; K86.2 Cyst of pancreas; F10.24 Alcohol dependence with alcohol-induced mood disorder; F10.229 Alcohol dependence with intoxication, unspecified; E87.6 Hypokalemia; Z79.899 Other long term (current) drug therapy; Y90.8 Blood alcohol level of 240 mg/100 ml or more
CPT/HCPCS: 74177; 76705; 80048; 80053; 80069; 81001; 81025; 82947; 83690; 83735; 84100; 84443; 85025; 87086; 96360; 96361; 96365; 96366; 96372; 96375; 96376; 99285-25; G0378; G0480; J1170; J1885; J2405; J3411; J3475; J3480; J7030; J7042; Q3014; Q9967

== ENCOUNTER 2018-08-26 16:57 | Emergency (ER) | payer OTHER ==
[~2018-08-26] VITALS: Ht 175.3 cm; Wt 56.7 kg
[2018-08-26 17:34] LABS: BASOPHILS ABSOLUTE AUTO 0.04 K/mm3 (0.00-0.23); BASOPHILS PERCENT AUTO 0 % (0-2); EOSINOPHILS ABSOLUTE AUTO 0.49 K/mm3 (0.00-0.68); EOSINOPHILS PERCENT AUTO 4 % (0-6); IMMATURE GRAN ABSOLUTE AUTO 0.03 K/mm3 (0.00-0.10); IMMATURE GRAN PERCENT AUTO 0 % (0-1); LYMPHOCYTES ABSOLUTE AUTO 4.06 K/mm3 (0.84-5.20); LYMPHOCYTES PERCENT AUTO 37 % (21-46); MONOCYTES ABSOLUTE AUTO 0.75 K/mm3 (0.16-1.47); MONOCYTES PERCENT AUTO 7 % (4-13); Mean Corpuscular HGB 28.9 pg (26.0-34.0); Mean Corpuscular HGB Conc 31.4 g/dL (31.5-36.5); Mean Corpuscular Volume 92 fL (80-100); NEUTROPHILS ABSOLUTE AUTO 5.76 K/mm3 (1.96-9.15); NEUTROPHILS PERCENT AUTO 52 % (41-73); Platelet Count 387 K/mm3 (150-400); RDW Coefficient Variation 14.3 % (11.7-14.2); RDW Standard Deviation 48.5 fL (35.1-46.3); Red Blood Cell Count 3.81 M/mm3 (3.80-5.20); White Blood Cell Count 11.13 K/mm3 (4.00-11.30)
[2018-08-26 18:02] LABS: Alanine Aminotransfer (ALT/SGP 27 U/L (12-78); Albumin, Blood 3.6 g/dL (3.4-5.0); Albumin/Globulin Ratio 0.8 (0.8-1.8); Alk Phos 153 U/L (50-136); Anion Gap 10 mmol/L (6-16); Aspartate Aminotrans (AST/SGOT 19 U/L (12-37); Bilirubin, Total 0.1 mg/dL (0.1-1.0); Blood Urea Nitrogen 21 mg/dL (8-24); Bun/Creatinine Ratio 39.2 (12.0-20.0); CO2, Blood 23 mmol/L (21-32); Calcium, Blood 9.6 mg/dL (8.5-10.1); Chloride, Blood 104 mmol/L (98-108); Creatinine, Blood 0.54 mg/dL (0.40-1.00); Globulin, Blood 4.6 g/dL (2.2-4.0); Glomerular Filtration Rate >60 (60-); Glucose, Blood 136 mg/dL (70-99); Potassium, Blood 3.2 mmol/L (3.5-5.5); Sodium, Blood 137 mmol/L (136-145); Total Protein, Blood 8.2 g/dL (6.4-8.2)
[2018-08-27] MEDS ORDERED: CREON DR 36,001 EACH PO ×2 (15:47)
[2018-08-27] MEDS ORDERED: FOLI1 PO ×2 (15:47)
[2018-08-27] MEDS ORDERED: B-1100 MG PO (15:47)
[2018-08-27] MEDS ORDERED: ACET325 PO ×2 (15:48)
== END 2018-08-26 17:43 | disposition left against medical advice (07) ==
LOC: ER 16:57
PROVIDERS: Physician Assistant
DX: Z53.21 Procedure and treatment not carried out due to patient leaving prior to being seen by health care provider (principal)
CPT/HCPCS: 80053; 83690; 85025; 99283

== ENCOUNTER 2018-08-27 04:19 | Inpatient (IN) | payer OTHER ==
[~2018-08-27] VITALS: Ht 175.3 cm; Wt 55.5 kg
[2018-08-27 05:34] LABS: Alanine Aminotransfer (ALT/SGP 29 U/L (12-78); Albumin, Blood 3.5 g/dL (3.4-5.0); Albumin/Globulin Ratio 0.8 (0.8-1.8); Alk Phos 151 U/L (50-136); Anion Gap 12 mmol/L (6-16); Aspartate Aminotrans (AST/SGOT 21 U/L (12-37); Bilirubin, Total 0.1 mg/dL (0.1-1.0); Blood Urea Nitrogen 17 mg/dL (8-24); Bun/Creatinine Ratio 37.2 (12.0-20.0); CO2, Blood 23 mmol/L (21-32); Calcium, Blood 8.8 mg/dL (8.5-10.1); Chloride, Blood 103 mmol/L (98-108); Creatinine, Blood 0.46 mg/dL (0.40-1.00); Ethanol (Alcohol), Blood, Med 30 mg/dL; Globulin, Blood 4.2 g/dL (2.2-4.0); Glomerular Filtration Rate >60 (60-); Glucose, Blood 101 mg/dL (70-99); Potassium, Blood 3.6 mmol/L (3.5-5.5); Sodium, Blood 138 mmol/L (136-145); Total Protein, Blood 7.7 g/dL (6.4-8.2)
[2018-08-27 06:09] LABS: BASOPHILS ABSOLUTE AUTO 0.05 K/mm3 (0.00-0.23); BASOPHILS PERCENT AUTO 1 % (0-2); EOSINOPHILS ABSOLUTE AUTO 0.41 K/mm3 (0.00-0.68); EOSINOPHILS PERCENT AUTO 6 % (0-6); Hematocrit 36.3 % (33.0-51.0); Hemoglobin 11.5 g/dL (11.5-16.0); IMMATURE GRAN ABSOLUTE AUTO 0.01 K/mm3 (0.00-0.10); IMMATURE GRAN PERCENT AUTO 0 % (0-1); LYMPHOCYTES ABSOLUTE AUTO 2.51 K/mm3 (0.84-5.20); LYMPHOCYTES PERCENT AUTO 33 % (21-46); MONOCYTES ABSOLUTE AUTO 0.43 K/mm3 (0.16-1.47); MONOCYTES PERCENT AUTO 6 % (4-13); Mean Corpuscular HGB 29.3 pg (26.0-34.0); Mean Corpuscular HGB Conc 31.7 g/dL (31.5-36.5); Mean Corpuscular Volume 93 fL (80-100); Mean Platelet Volume 9.4 fL (9.1-12.4); NEUTROPHILS ABSOLUTE AUTO 4.11 K/mm3 (1.96-9.15); NEUTROPHILS PERCENT AUTO 55 % (41-73); Platelet Count 451 K/mm3 (150-400); RDW Coefficient Variation 14.4 % (11.7-14.2); RDW Standard Deviation 49.1 fL (35.1-46.3); Red Blood Cell Count 3.92 M/mm3 (3.80-5.20); White Blood Cell Count 7.52 K/mm3 (4.00-11.30)
[2018-08-27 06:14] LABS: Cholesterol 151 mg/dL (50-200); HDL Cholesterol 25 mg/dL (>39); LDL/HDL RATIO 3.4; Low Density Lipoprotein Chol 85 mg/dL (0-110); Triglycerides 207 mg/dL (30-140); Very Low Density Lipoprot Chol 41 mg/dL (6-28)
[2018-08-27 09:43] LABS: Source, Urine Clean Catch
[2018-08-27 09:52] LABS: Bilirubin, Urine Neg (Neg); Blood, Urine Neg (Neg); Glucose Qualitative, Urine Neg (Neg); Ketones, Urine Neg (Neg); Leukocyte Esterase, Urine Neg (Neg); Nitrite, Urine Neg (Neg); Protein, Urine Neg (Neg); Urobilinogen, Urine NORM (Normal)
[2018-08-27 10:05] LABS: Appearance, Urine Clear (Clear); Color, Urine Yellow (P-Yellow)
[2018-08-27] MEDS ORDERED: FOLI1 PO ×2 (15:47)
[2018-08-27] MEDS ORDERED: CREON DR 36,001 EACH PO ×2 (15:47)
[2018-08-27] MEDS ORDERED: B-1100 MG PO (15:47)
[2018-08-27] MEDS ORDERED: ACET325 PO ×2 (15:48)
--- NOTE | 2018-08-27 17:20 | NUR ---
SHE WAS AMITTED TODAY TO RM 355 FROM THE ER. SHE IS A&O AND PLEASANT. SHE SHOWERED ON ARRIVAL TO THE ROOM AFTER PICC LINE COVERED. BOTH PORT FLUSHED WELL AFTER SHOWER. SHE HAS NO NAUSEA SINCE ARRIVAL BUT HAD ABD PAIN. 1 MG THEN SHORTLY AFTER, ANOTHER 1 MG IV DILAUDID GIVEN. PAIN DOWN FROM 7 TO 2. TPN WILL START SOON. NS IVF'S WILL STOP DURING TPN INFUSION. PATIENT REALLY WANTED TO EAT ONCE SHE STARTED FEELING BETTER. I SPOKE WITH . ORDERS RECEIVED. FENTANYL DC'D. DILAUDID CHANGED TO PO. REGULAR DIET ORDERED. SHE HAS STARTED WITH ICE WATER. SHE CHOSE THIS PLAN AND POSSIBLE DISCHARGE TOMORROW, INSTEAD OF REMAINING NPO OVERNIGHT. CBG'S WILL START AT MIDNIGHT PER PROTOCOL.
--- NOTE | 2018-08-27 21:35 | NUR ---
2121 PT LYING IN BED, AWAKE, REPORTS HEARTBURN, NOTHING ORDERED FOR THIS. PT TAKES PRILOSEC AT HOME, WILL SPEAK TO THE DR WHEN SOMEONE CALLS. PT REPORTS PAIN ALL OVER OF 7-8, IT IS ABOUT 30 MIN BEFORE I CAN GIVE MORE PAIN MEDICATION, PT REPORTS SHE THINKS SHE CAN WAIT UNTIL THEN. WILL GIVE MED WHEN IT IS TIME AND EVAL FOR EFFECT. NO OTHER APPARENT SIGNS OF DISTRESS. CALL LIGHT IS IN REACH.
--- NOTE | 2018-08-27 23:11 | NUR ---
PT REPORTED N/V "ALL OVER", NONE SEEN, PT REPORTED FLUSHING IT. GAVE PT ZOFRAN. PT WANTS TO KNOW IF SHE CAN GET HER DILAUDED IN IV FORM INSTEAD OF PILL FORM. I SUGGESTED WAITING 20 MINUTES AFTER I GAVE HER THE ZOFRAN AND THEN I COULD GIVE HER THE DILAUDED PO. SPOKE WITH THE DR AND GOT HER PRILOSEC FROM HOME AND TUMS ORDERED WELL. PT REQUESTING BOTH OF THESE WHEN I COME BACK WITH THE DILAUDED PO. PT WANTS TO KNOW WHY HER DILAUDED WAS CHANGED FROM IV TO PO. THERE IS NOTHING THAT SPECIFICALLY TALKS ABOUT THIS IN THE DR'S NOTE BUT PER THE DAY RN REPORTS I TOLD THE PT THAT MY BEST GUESS WAS THAT SINCE SHE HAD REQUESTED THAT HER DIET BE INCREASED TO REGULAR AND THAT THEY HAD TALKED ABOUT A POSSIBILITY OF HER GOING HOME TOMORROW IF SHE WAS DOING OK, THAT THEY FIGURED SHE THOUGHT SHE COULD HANDLE PO INTAKE/PO PILLS OK. 2315 GAVE PT HER DILAUDED, PRILOSEC, TUMS, WILL EVAL FOR EFFECT. NO OTHER APPARENT SIGNS OF DISTRESS. CALL LIGHT IS IN REACH.
--- NOTE | 2018-08-28 01:21 | NUR ---
0045 PT LYING IN BED, EYES CLOSED, APPEARS TO BE SLEEPING. WAKES EASILY TO VERBAL STIMULI. REPORTS HER PAIN IS UNCHANGED AND SHE IS STILL HAVING NAUSEA. OFFERED THE PT A HEATING PAD. AFTER I WALKED OUT OF THE ROOM PT BEGAN TO HAVE N/V WITH THE REAL ESTATE SERVICES COORDINATOR WITNESSING 300 OUT WITH A LOT OF FOAM. CALLED , GOT IV PAIN MEDICATION FOR BREAKTHROUGH PAIN AND SECOND NAUSEA MED FOR BREAKTHROUGH N/V. 0120 ADMINISTERED IV PAIN MED AND PHENERGAN, WILL EVAL FOR EFFECT. NO OTHER APPARENT SIGNS OF DISTRESS. CALL LIGHT IS IN REACH.
--- NOTE | 2018-08-28 02:05 | NUR ---
PT LYING IN BED, EYES CLOSED, APPEARS TO BE RESTING. WAKES EASILY TO VERBAL STIMULI. NO APPARENT SIGNS OF DISTRESS. CALL LIGHT IS IN REACH.
--- NOTE | 2018-08-28 03:00 | NUR ---
PT IS AAO X 4, ON RA. PT REPORTS PAIN EVERYWHERE, GOT DILAUDED PO X 1, WANTED TO KNOW WHY IT WAS CHANGED FROM IV TO PO, REPORTED IT DID NOT DECREASE HER PAIN AT ALL. GOT FENTANYL X 1 FOR BREAKTHROUGH PAIN. PT REPORTED NAUSEA WITH VOMITING X 2, ONLY 1 WITNESSED, 300 OUT WITH A LOT OF FOAM. PT GOT ZOFRAN, PRILOSEC, TUMS, AFTER THE FIRST REPORT OF NAUSEA. PT REPORTED THAT HER NAUSEA WAS NOT RELIEVED. PT GOT PHENERGAN X 1. BS AT AR WAS 138.
[2018-08-28 05:08] LABS: Hematocrit 32.8 % (33.0-51.0); Hemoglobin 10.5 g/dL (11.5-16.0); Mean Corpuscular HGB 29.1 pg (26.0-34.0); Mean Corpuscular Volume 91 fL (80-100); Mean Platelet Volume 9.5 fL (9.1-12.4); Platelet Count 383 K/mm3 (150-400); RDW Coefficient Variation 14.2 % (11.7-14.2); RDW Standard Deviation 48.1 fL (35.1-46.3); Red Blood Cell Count 3.61 M/mm3 (3.80-5.20); White Blood Cell Count 10.46 K/mm3 (4.00-11.30)
[2018-08-28 05:16] LABS: Alanine Aminotransfer (ALT/SGP 24 U/L (12-78); Albumin, Blood 3.2 g/dL (3.4-5.0); Albumin/Globulin Ratio 0.8 (0.8-1.8); Alk Phos 138 U/L (50-136); Anion Gap 9 mmol/L (6-16); Aspartate Aminotrans (AST/SGOT 16 U/L (12-37); Bilirubin, Total 0.2 mg/dL (0.1-1.0); Blood Urea Nitrogen 21 mg/dL (8-24); Bun/Creatinine Ratio 42.4 (12.0-20.0); CO2, Blood 27 mmol/L (21-32); Calcium, Blood 8.9 mg/dL (8.5-10.1); Chloride, Blood 102 mmol/L (98-108); Glomerular Filtration Rate >60 (60-); Glucose, Blood 123 mg/dL (70-99); Phosphorus, Blood 4.2 mg/dL (2.5-4.9); Potassium, Blood 3.6 mmol/L (3.5-5.5); Sodium, Blood 138 mmol/L (136-145); Total Protein, Blood 7.2 g/dL (6.4-8.2); Triglycerides 168 mg/dL (30-140)
--- NOTE | 2018-08-28 05:19 | NUR ---
PT LYING IN BED, EYES CLOSED, APPEARS TO BE RESTING. WAKES EASILY TO VERBAL STIMULI. NO APPARENT SIGNS OF DISTRESS. CALL LIGHT IS IN REACH. NO OTHER CHANGES THIS SHIFT.
--- NOTE | 2018-08-28 05:19 | NUR ---
0400 PT LYING IN BED, EYES CLOSED, APPEARS TO BE RESTING. BREATHING IS EVEN, UNLABORED. NO APPARENT SIGNS OF DISTRESS. CALL LIGHT IS IN REACH.
--- NOTE | 2018-08-28 11:45 | NUR ---
I NOTIFIED THIS MORNING ABOUT HARISH'S BAD NIGHT AFTER SHE TRIED TO EAT SOME DINNER LAST NIGHT AND HAD PO NARCOTIC FOR PAIN CONTROL. ORDERS RECEIVED TO MAKE HER NPO AND CHANGE DILAUDID TO IV. FENTANYL DC'D ALSO. AFTER IV DILAUDID TOOK AFFECT, SHE FELT MUCH BETTER, MOVED AROUND AND DENIED ANY NAUSEA. NOW SHE WILL SHOWER.
--- NOTE | 2018-08-28 17:08 | NUR ---
SHIFT SUMMARY SHE IS RESTING COMFORTABLY. SHE HAS RECEIVED IV DILAUDID X2 THIS SHIFT SO FAR AND ZOFRAN X1. NO EMESIS THIS SHIFT. SHE HAS BEEN NPO ALL DAY WITH IVF'S INFUSING. NS JUST STOPPED AND TPN STARTED FOR THE EVENING. KPAD USED ON ABD FOR COMFORT. CBG WNL.NO FEVER. WEEKLY PICC LINE DRESSING CHANGED THIS AM.
--- NOTE | 2018-08-28 18:28 | NUR ---
A THIRD DOSE OF DILAUDID GIVEN THIS SHIFT. SHE SAYS JUST HER UPPER ABD HURTS, NOT HER L SIDE OR BACK.
[2018-08-29 05:31] LABS: Magnesium, Blood 2.1 mg/dL (1.6-2.4)
--- NOTE | 2018-08-29 06:02 | NUR ---
SUMMARY: A/O, INDEPENDENT AND SPECIFIES NEEDS. PT REQUIRES FREQ PRN PAIN AND NAUSEA MEDS. DILAUDID 2MG AND AND ZOFRAN IV PRN RECIEVED REGULARLY T/O NOCTE. PT HAD TPN INFUSE FOR 8 HOURS T/O NOCTE THEN WAS SWITCHED TO NS AT 125 ML/HR RX'D VIA R.UA PICC LINE. SHE REPORTS ABDO, L.SIDE AND BACK PAIN W/KPAD IN PLACE FOR BREAKTHROUGH PAIN. PT TRIALED ICE CHIPS AND TOLERATED THEM OK. LIPASE IMPROVED THIS AM TO 417. CIWAS STABLE AT 0. NO ACUTE CHANGES, VSS AND AFEBRILE. PT SLEPT INTERMITTENTLY T/O NOCTE. WILL MONITOR/REPORT TO DAY RN.
[2018-08-29] MEDS ORDERED: ONDA4ODT MM ×2 (12:20)
[2018-08-29 12:42] LABS: C-REACTIVE PROTEIN, EXT RANGE 0.846 mg/dL (0.000-0.300); Magnesium, Blood 2.1 mg/dL (1.6-2.4)
[2018-08-29 12:53] LABS: Alanine Aminotransfer (ALT/SGP 27 U/L (12-78); Albumin, Blood 2.8 g/dL (3.4-5.0); Albumin/Globulin Ratio 0.8 (0.8-1.8); Alk Phos 123 U/L (50-136); Anion Gap 6 mmol/L (6-16); Aspartate Aminotrans (AST/SGOT 25 U/L (12-37); Bilirubin, Total 0.3 mg/dL (0.1-1.0); Blood Urea Nitrogen 14 mg/dL (8-24); Bun/Creatinine Ratio 29.3 (12.0-20.0); CO2, Blood 28 mmol/L (21-32); Calcium, Blood 8.5 mg/dL (8.5-10.1); Chloride, Blood 106 mmol/L (98-108); Creatinine, Blood 0.48 mg/dL (0.40-1.00); Globulin, Blood 3.3 g/dL (2.2-4.0); Glomerular Filtration Rate >60 (60-); Glucose, Blood 101 mg/dL (70-99); Phosphorus, Blood 4.3 mg/dL (2.5-4.9); Potassium, Blood 3.7 mmol/L (3.5-5.5); Sodium, Blood 140 mmol/L (136-145); Total Protein, Blood 6.1 g/dL (6.4-8.2); Triglycerides 132 mg/dL (30-140)
--- NOTE | 2018-08-29 13:40 | NUR ---
PT REQUESTING TO STAY ANOTHER NIGHT, PT STATES THAT SHE FEELS HER NAUSEA AND PAIN WILL NOT BE ADEQUATELY MANAGED AT HOME AT THIS POINT. NOTIFIED DR ANGELA, NEW ORDERS TO HOLD DISCHARGE. WILL CONTINUE TO MONITOR.
--- NOTE | 2018-08-29 18:26 | NUR ---
SHIFT SUMMARY PT A&OX4. CALM AND COOPERATIVE WITH CARE. PT BECAME ANXIOUS WHEN POSSIBILITY OF DISCHARGE DISCUSSED, REQUESTED TO STAY AN ADDITIONAL DAY. PT IND IN ROOM. PT REPORTS EPIGASTRIC PAIN THAT RADIATED TO BACK AND LEFT SIDE, MEDICATED x2 WITH 1MG OF IV DILAUDID, WITH POSITIVE RESULTS. PT REPORTS NAUSEA, SHE STATES ITS COMES WHEN THE PAIN IS BAD, MEDICATED x1 WITH PHENERGAN AND x1 WITH ZOFRAN. PT RECEIVING CPN THIS EVENING. PT STARTED ON FULL LIQUIDS, LOW FAT DIET, APPEARS TO BE TOLERATING WELL. PT RECEIVED CREON WITH MEALS. HYPOTENSIVE THIS AM, DR ANGELA NOTIFIED, OTHER VSS. NO OTHER ACUTE CHANGES NOTED. WILL CONTINUE TO MONITOR UNTIL REPORT GIVEN TO ONCOMING RN.
--- NOTE | 2018-08-30 01:39 | NUR ---
CPN COMPLETED FOR NOCTE AND PT PLACED BACK ON NS AT 125 ML/HR RX'D.
--- NOTE | 2018-08-30 03:59 | NUR ---
SUMMARY: A/O, INDEPENDENT AND SPECIFIES NEEDS. SHE CONT'S TO C/O PERSISTANT ABDO, BACK AND SIDE PAIN W/NAUSEA BUT NO EMESIS. SHE REQ'S REGULAR PRN PAIN RELIEF APPROX Q4H W/X3 DOSES DILAUDID 1MG IV RECIEVED FOR POSITIVE EFFECT. SHE'S ALSO HAD ZOFRAN X2 DOSES AND PHENERGAN 12.5MG IV X1 DOSE FOR IMPROVED NAUSEA CONTROL. SHE DOESN'T OVERTLY APPEAR PAINFUL AND HAS BEEN ASLEEP FOLLOWING PAIN MED REQUESTS BUT AWAKES GRIMACING AND ASKING FOR IT. SHE SEEMS TO BE TOLERATING LOW FAT FULL LIQ'S REASONABLY BUT DENIES PASSING FLATUS OR HAVING A BM THIS SHIFT. NIGHTLY CPN COMPLETED PER EMAR AND PT NOW HAS NS INFUSING RX'D. CIWAS STABLE AT 1-2 D/T MILD ANXIETY AND NAUSEA. PROBABLE D/C TODAY BUT PT IS "UNSURE SHE'S READY". VSS/AFEBRILE, NO ACUTE CHANGES. WILL MONITOR AND REPORT TO DAY RN.
[2018-08-30 06:54] LABS: Magnesium, Blood 2.2 mg/dL (1.6-2.4); Phosphorus, Blood 4.5 mg/dL (2.5-4.9)
--- NOTE | 2018-08-30 13:45 | NUR ---
PATIENT DISCHARGED VIA HER OWN VEHICLE. SHE IS FOLLOWING UP WITH HER PCP AND JYOTI NERI THIS WEEK. SHE REQUESTED FOR ME TO FLUSH BOTH PICC LINE LUMENS. LINES FLUSHED, NEW ORANGE CAPS PLACED. PATIENT GIVEN NORCO PRESCRIPTION.
== END 2018-08-30 13:43 | disposition home or self-care (01) | DRG 439 ==
LOC: ER 04:19 → EOR 04:20 → ERHOLD 04:21 → MEDS 05:50 → ENPENDDIS 08-29 11:00 → MEDS 08-30 13:43
PROVIDERS: Emergency Medicine; Internal Medicine; ADMIT Internal Medicine
DX: K85.20 Alcohol induced acute pancreatitis without necrosis or infection (principal); K86.3 Pseudocyst of pancreas; E86.0 Dehydration; K86.1 Other chronic pancreatitis; K29.20 Alcoholic gastritis without bleeding; K21.9 Gastro-esophageal reflux disease without esophagitis; F32.9 Major depressive disorder, single episode, unspecified; F10.20 Alcohol dependence, uncomplicated; F17.210 Nicotine dependence, cigarettes, uncomplicated; Z79.899 Other long term (current) drug therapy; Z91.038 Other insect allergy status
CPT/HCPCS: 36415; 80053; 80061; 81003; 82947; 83690; 83735; 84100; 84134; 84478; 85025; 85027; 86140; 96374; 96375; 96376; 99285-25; C9113; G0480; J1170; J1650; J2405; J2550; J3010; J7030

== ENCOUNTER 2018-09-04 11:47 | Inpatient (IN) | payer OTHER ==
[~2018-09-04] VITALS: Ht 175.3 cm; Wt 55.0 kg
[~2018-09-04 11:47] MED LIST changes: +B-1100 MG PO
[2018-09-04 13:12] LABS: BASOPHILS ABSOLUTE AUTO 0.07 K/mm3 (0.00-0.23); BASOPHILS PERCENT AUTO 1 % (0-2); EOSINOPHILS ABSOLUTE AUTO 0.29 K/mm3 (0.00-0.68); EOSINOPHILS PERCENT AUTO 2 % (0-6); Hematocrit 40.9 % (33.0-51.0); Hemoglobin 13.2 g/dL (11.5-16.0); IMMATURE GRAN ABSOLUTE AUTO 0.05 K/mm3 (0.00-0.10); IMMATURE GRAN PERCENT AUTO 0 % (0-1); LYMPHOCYTES ABSOLUTE AUTO 2.56 K/mm3 (0.84-5.20); LYMPHOCYTES PERCENT AUTO 21 % (21-46); MONOCYTES ABSOLUTE AUTO 0.91 K/mm3 (0.16-1.47); MONOCYTES PERCENT AUTO 7 % (4-13); Mean Corpuscular HGB 28.4 pg (26.0-34.0); Mean Corpuscular HGB Conc 32.3 g/dL (31.5-36.5); Mean Corpuscular Volume 88 fL (80-100); Mean Platelet Volume 9.6 fL (9.1-12.4); NEUTROPHILS PERCENT AUTO 69 % (41-73); Platelet Count 479 K/mm3 (150-400); RDW Coefficient Variation 14.1 % (11.7-14.2); RDW Standard Deviation 44.9 fL (35.1-46.3); Red Blood Cell Count 4.64 M/mm3 (3.80-5.20); White Blood Cell Count 12.48 K/mm3 (4.00-11.30)
[2018-09-04 13:27] LABS: Alanine Aminotransfer (ALT/SGP 25 U/L (12-78); Albumin, Blood 3.6 g/dL (3.4-5.0); Albumin/Globulin Ratio 0.9 (0.8-1.8); Alk Phos 150 U/L (50-136); Anion Gap 8 mmol/L (6-16); Aspartate Aminotrans (AST/SGOT 14 U/L (12-37); Bilirubin, Total 0.7 mg/dL (0.1-1.0); Blood Urea Nitrogen 13 mg/dL (8-24); Bun/Creatinine Ratio 22.8 (12.0-20.0); CO2, Blood 30 mmol/L (21-32); Calcium, Blood 9.7 mg/dL (8.5-10.1); Chloride, Blood 95 mmol/L (98-108); Creatinine, Blood 0.57 mg/dL (0.40-1.00); Globulin, Blood 4.2 g/dL (2.2-4.0); Glomerular Filtration Rate >60 (60-); Glucose, Blood 105 mg/dL (70-99); Potassium, Blood 3.5 mmol/L (3.5-5.5); Sodium, Blood 133 mmol/L (136-145); Total Protein, Blood 7.8 g/dL (6.4-8.2)
[2018-09-04 14:55] LABS: Source, Urine Clean Catch
[2018-09-04 14:58] LABS: Blood, Urine 1+ (Neg); Glucose Qualitative, Urine Neg (Neg); Ketones, Urine 2+ (Neg); Leukocyte Esterase, Urine 2+ (Neg); Nitrite, Urine Neg (Neg); Protein, Urine 2+ (Neg); Specific Gravity, Urine 1.015 (1.003-1.022); Urobilinogen, Urine 1+ (Normal)
[2018-09-04 15:10] LABS: Bilirubin, Urine 1+ (Neg)
[2018-09-04 15:11] LABS: Appearance, Urine Hazy (Clear); Color, Urine Amber (P-Yellow)
[2018-09-04 15:12] LABS: Bacteria Few /hpf; Squamous Epithelial Cells Mod /hpf (Few)
[2018-09-04 15:46] LABS: U Amphetamine Screen Not Detected; U Barbituate Screen Not Detected; U Benzodiazapine Screen Not Detected; U Buprenorphine Screen Not Detected; U Cannabinoids Screen Not Detected; U Cocaine Screen Not Detected; U Methadone Screen Not Detected; U Methamphetamine Screen Not Detected; U Opiates Screen DETECTED; U Oxycodone Screen Not Detected; U Phencyclidine Screen Not Detected; U Propoxyphene Screen Not Detected
--- NOTE | 2018-09-04 16:10 | NUR ---
TO ROOM VIA W/C PT ORIENTED TO ROOM AND FREQUENT ROUNDING PROCEDURE. CALL LIGHT WITHIN REACH. BED LOW AND IN LOCKED POSITION
--- NOTE | 2018-09-04 18:55 | NUR ---
SHIFT SUMMARY ADMIT THIS P.M. FOR PANCREATITIS RECENT ADMISSIONS FOR SAME. INTENSE ABDOMINAL PAIN AND INABILITY TO TOLERATE PO INTAKE FOR PAST SEVERAL DAYS. A AND OX4 INDEPENEDENT IN ROOM. COOPERATIVE, PLEASANT. PLANS IN PLACE TO CHECK IN TO REHAB SOON MEDICALLY STABLE. PICC LINE CELSO.
--- NOTE | 2018-09-05 02:45 | NUR ---
YOUNG FEMALE WHO WAS DISCHARGED LAST WEEK ON WEDNESDAY BACK ON WEDNESDAY WITH REOCCURING ACUTE ON CHRONIC PANCREATITIS. SHE HAS BEEN UNABLE TO TOLERATE ORAL INTAKE SINCE DISCHARGE BUT SHE DID CONSUME RUM OF UNKNOWN AMOUNT SINGE DISCHARGE. SHE ALSO HAS BEEN SMOKING CIGARETTES UP TO 5 A DAY SINCE DC HOME. SHE WAS USING HOME TPN VIA RT UPPERARM PIC LINE PLACED 07/15/18. SHE SAID NO TPN FOR LAST 2 NIGHTS FOR REASON UNKNOWN. MEDICATED FOR PAIN AND NAUSEA. KPAD ORDER OBTAINED AND HELPFUL TO DECREASE ABD PAIN. SIPS WATER NOT EVEN ATTEMPTING OTHER CLEAR LIQUIDS DUE TO INCREASED PAIN WITH WATER INTAKE. DR RIGOBERTO PANDEY CONSULTED ON PT AND ASKED FOR DITICIAN REFERRAL TO MANAGE PARENTAL NUTRITION. COUNSELED PT ON INABILITY TO SMOKE AND DRINK WITH PANCREATITIS AND SHE VERBALIZED UNDERSTANDING, SHE HAS A SPOT IN REHAB FOR ALCOHOLISM WHEN MEDICALLY CLEARED. UA WAS POSITIVE FOR UTI C & S PENDING. DISCUSSED UA RESULTS WITH MILLI AND ESTUARDO NEW MEDS RX. + HX OF UTI WITH BURNING ASSOCIATED BUT PT SAYS TENDERNESS IN BLADDER AREA. URINE CLEAR ANETTE. PT ADMITS TO CONSUMING ABOUT 4 FIFTHS OF RUM WEEKLY. RECENT 25 POUND WT LOSS IN 3 WEEKS. BRAND MARKETING INTERN REFERRAL FOR DISCHARGE PLANNING
[2018-09-05 05:38] LABS: Hematocrit 28.3 % (33.0-51.0); Mean Corpuscular HGB 28.9 pg (26.0-34.0); Mean Corpuscular HGB Conc 31.8 g/dL (31.5-36.5); Mean Platelet Volume 9.5 fL (9.1-12.4); Platelet Count 227 K/mm3 (150-400); RDW Coefficient Variation 14.1 % (11.7-14.2); Red Blood Cell Count 3.11 M/mm3 (3.80-5.20); White Blood Cell Count 7.62 K/mm3 (4.00-11.30)
[2018-09-05 05:40] LABS: Mean Corpuscular Volume 91 fL (80-100)
[2018-09-05 06:12] LABS: Alanine Aminotransfer (ALT/SGP 12 U/L (12-78); Albumin, Blood 2.6 g/dL (3.4-5.0); Albumin/Globulin Ratio 0.8 (0.8-1.8); Alk Phos 102 U/L (50-136); Anion Gap 9 mmol/L (6-16); Aspartate Aminotrans (AST/SGOT 11 U/L (12-37); Bilirubin, Total 0.7 mg/dL (0.1-1.0); Blood Urea Nitrogen 8 mg/dL (8-24); Bun/Creatinine Ratio 15.2 (12.0-20.0); CO2, Blood 30 mmol/L (21-32); Calcium, Blood 8.2 mg/dL (8.5-10.1); Chloride, Blood 96 mmol/L (98-108); Creatinine, Blood 0.53 mg/dL (0.40-1.00); Globulin, Blood 3.1 g/dL (2.2-4.0); Glomerular Filtration Rate >60 (60-); Glucose, Blood 89 mg/dL (70-99); Potassium, Blood 2.9 mmol/L (3.5-5.5); Sodium, Blood 135 mmol/L (136-145)
[2018-09-05 06:15] LABS: Total Protein, Blood 5.7 g/dL (6.4-8.2)
--- NOTE | 2018-09-05 16:04 | NUR ---
Per admit trigger, I met with Gabriela to offer prayer and emotional support. She declined pastoral care at this time. Advised upscale security officer services would remain available.
--- NOTE | 2018-09-05 16:37 | NUR ---
Patient gave this vocational nursing instructor permission to access chart and to shadow their nurse tomorrow, September 06, 2018.
--- NOTE | 2018-09-05 19:11 | NUR ---
SHIFT SUMMARY. A&OX4, INDEPENDENT IN ROOM. PT CONTINUES WITH INTERMITTENT NAUSEA WITHOUT VOMITTING AND ABDOMINAL PAIN THAT HAS BEEN MANAGED WELL WITH CURRENT ORDERS, SYMPTOMS OCCUR AFTER PO INTAKE. TPN STARTED, PICC DRESSING CHANGED.
[2018-09-06 04:49] LABS: Hematocrit 27.9 % (33.0-51.0); Hemoglobin 8.8 g/dL (11.5-16.0); Mean Corpuscular HGB 29.2 pg (26.0-34.0); Mean Corpuscular HGB Conc 31.5 g/dL (31.5-36.5); Mean Corpuscular Volume 93 fL (80-100); Mean Platelet Volume 9.9 fL (9.1-12.4); Platelet Count 182 K/mm3 (150-400); RDW Standard Deviation 48.2 fL (35.1-46.3); Red Blood Cell Count 3.01 M/mm3 (3.80-5.20); White Blood Cell Count 5.28 K/mm3 (4.00-11.30)
[2018-09-06 05:04] LABS: Anion Gap 6 mmol/L (6-16); Blood Urea Nitrogen 12 mg/dL (8-24); Bun/Creatinine Ratio 27.5 (12.0-20.0); CO2, Blood 32 mmol/L (21-32); Calcium, Blood 8.1 mg/dL (8.5-10.1); Chloride, Blood 100 mmol/L (98-108); Creatinine, Blood 0.44 mg/dL (0.40-1.00); Glomerular Filtration Rate >60 (60-); Glucose, Blood 111 mg/dL (70-99); Magnesium, Blood 1.9 mg/dL (1.6-2.4); Phosphorus, Blood 4.2 mg/dL (2.5-4.9); Potassium, Blood 3.9 mmol/L (3.5-5.5); Sodium, Blood 138 mmol/L (136-145); Triglycerides 160 mg/dL (30-140)
--- NOTE | 2018-09-06 05:17 | NUR ---
SHIFT SUMMARY PT AWAKE ON/OFF T/O NIGHT DUE TO 03/01 PAIN IN ABD, MEDICATED 3X W/DILAUDID PER ORDERS. ABD SOFT & TENDER TO PALPATION. AOX4. VSS. DENIES SOB. REPORTS NAUSEA THIS AM AFTER GETTING UP & AMBULATING TO RESTROOM & WAS MEDICATED 1X W/ZOFRAN PER ORDERS. TOLERATING CLEAR DIET WELL NO EMESIS AT THIS TIME, WILL CONT. TO MONITOR. TPN STOPPED THIS AM @ 0500. CALL LIGHT IN REACH & BED IN LOWEST POSITION.
--- NOTE | 2018-09-06 08:23 | NUR ---
Patient gave consent to student nurse for learning purposes 09/06/2018
--- NOTE | 2018-09-06 11:33 | NUR ---
PATIENT PERMISSION PATIENT GAVE PERMISSION TO PROVIDE CARE ON 09/07/18 AT [phone].
--- NOTE | 2018-09-06 17:48 | NUR ---
SHIFT SUMMARY PT A&OX4. CALM AND COOPERATIVE WITH CARE. PT RESTING IN BED DURING SHIFT. UP IND IN ROOM. PT REPORTS PAIN IN UPPER ABD AND LEFT SIDE, MEDICATED X3 WITH IV DILAUDID, PT STATES THAT HER PAIN HAS INCREASED SINCE STARTING ORAL INTAKE AND MEDICATION IS NOT LASTING LONG, NOTIFIED DR NAJERA, NEW ORDERS FOR DILAUDID PO 4MG Q8 HOURS SCHEDULED. PT REPORTS NAUSEA, DENIES NEEDS FOR MEDICATION. PT DENIES SOB. PT RECEIVING CPN. HR IN 90'S, OTHER VSS. NO OTHER ACUTE CHANGES NOTED DURING SHIFT. WILL CONTINUE TO MONITOR UNTIL REPORT GIVEN TO ONCOMING RN.
--- NOTE | 2018-09-07 05:04 | NUR ---
SHIFT SUMMARY PT SLEPT WELL DURING THE NIGHT. SECOND PORT DIFFICULT TO FLUSH WHEN GIVING NAUSEA MEDICATION EARLY ON IN SHIFT. THIS AM UNABLE TO FLUSH SECOND PORT AT ALL, ATTEMPT MADE TO OBTAIN LAB DRAW. CPN INFUSING PER PUMP AT THIS TIME WITHOUT DIFFICULTY. PT STATES THAT IT HAS BEEN HAVING TROUBLE FLUSHING OVER THE LAST COUPLE OF DAYS. HAS RECEIVED SCHEDULED DOSE OF PAIN MEDICATION, BUT NO BREAKTHROUGH NEEDED. WILL CONTINUE TO MONITOR.
[2018-09-07 05:29] LABS: Anion Gap 6 mmol/L (6-16); Blood Urea Nitrogen 14 mg/dL (8-24); Bun/Creatinine Ratio 27.7 (12.0-20.0); CO2, Blood 30 mmol/L (21-32); Calcium, Blood 8.3 mg/dL (8.5-10.1); Chloride, Blood 103 mmol/L (98-108); Creatinine, Blood 0.51 mg/dL (0.40-1.00); Glomerular Filtration Rate >60 (60-); Glucose, Blood 114 mg/dL (70-99); Magnesium, Blood 2.1 mg/dL (1.6-2.4); Phosphorus, Blood 4.7 mg/dL (2.5-4.9); Potassium, Blood 4.6 mmol/L (3.5-5.5); Sodium, Blood 139 mmol/L (136-145)
--- NOTE | 2018-09-07 16:18 | NUR ---
Patient agreed to let student nurse to provide care.
--- NOTE | 2018-09-07 17:21 | NUR ---
SUMMARY PT AWAKE IN BED WATCHING TV, PT HAS BEEN INDEPENDENT T/O THE DAY, POOR APPETITE, MED PER EMAR FOR PAIN AND NAUSEA, VSS, NO ACUTE CHANGES, WILL CONT TO MONITOR
--- NOTE | 2018-09-08 04:05 | NUR ---
SHIFT SUMMARY NO ACUTE CHANGES NOTED SO FAR THIS SHIFT. PT CONTINUES TO C/O ABD PAIN AND MEDICATED WITH BOTH SCHEDULED AND PRN PAIN MEDICATIONS WITH MINIMAL RELIEF. TPN CONTINUES TO RUN AT THIS TIME UNTIL 0500. PT IS CONCEARNED ABOUT URINE STATING THAT IT IS CLOUDY. ADVISED PT TO CONSULT WITH MD IN AM TO SEE IF THEY WOULD LIKE TO COMPLETE A UA, BUT IT APPEARS THAT THIS ISSUES HAS BEEN ADDRESSED MULTIPLE TIMES WITH THE PT. PT IS FRUSTRATED BECAUSE SHE STATES THAT SHE IS NOT GETTING ANY BETTER AND CANT UNDERSTAND WHY. THERAPUTIC COMMUNICATION AND ACTIVE LISTENING. NO APPARENT SIGNS OF ACUTE DISTRESS. ABLE TO MAKE NEEDS KNOWN AND CALL LIGHT IN REACH.
[2018-09-08 05:05] LABS: Anion Gap 6 mmol/L (6-16); Blood Urea Nitrogen 14 mg/dL (8-24); Bun/Creatinine Ratio 26.1 (12.0-20.0); CO2, Blood 29 mmol/L (21-32); Calcium, Blood 8.5 mg/dL (8.5-10.1); Chloride, Blood 100 mmol/L (98-108); Creatinine, Blood 0.54 mg/dL (0.40-1.00); Glomerular Filtration Rate >60 (60-); Glucose, Blood 107 mg/dL (70-99); Phosphorus, Blood 4.4 mg/dL (2.5-4.9); Potassium, Blood 4.9 mmol/L (3.5-5.5); Sodium, Blood 135 mmol/L (136-145)
--- NOTE | 2018-09-08 19:37 | NUR ---
SHIFT SUMMARY- PT HAS HAD NO ACUTE CHANGES T/O THE SHIFT, BEDSIDE REPORT COMPLETE AND PT REQUESTED PRN PAIN MEDICATION FROM NIGHT RN. PT HAD JUST RECENTLY RECIEVED ZOFRAN AND SCHEDULED PAIN MEDICATION. PLAN FOR POSSIBLE DISCHARGE WEDNESDAY PER DR GALEANO. PT ALERT AND ORIENTED AND INDEPENDENT IN THE ROOM, CALL LIGHT IN REACH.
[2018-09-09 05:12] LABS: BASOPHILS ABSOLUTE AUTO 0.02 K/mm3 (0.00-0.23); BASOPHILS PERCENT AUTO 1 % (0-2); EOSINOPHILS ABSOLUTE AUTO 0.33 K/mm3 (0.00-0.68); EOSINOPHILS PERCENT AUTO 8 % (0-6); Hematocrit 29.1 % (33.0-51.0); IMMATURE GRAN PERCENT AUTO 0 % (0-1); LYMPHOCYTES ABSOLUTE AUTO 1.41 K/mm3 (0.84-5.20); LYMPHOCYTES PERCENT AUTO 36 % (21-46); MONOCYTES ABSOLUTE AUTO 0.39 K/mm3 (0.16-1.47); MONOCYTES PERCENT AUTO 10 % (4-13); Mean Corpuscular HGB 28.8 pg (26.0-34.0); Mean Corpuscular HGB Conc 30.9 g/dL (31.5-36.5); Mean Corpuscular Volume 93 fL (80-100); Mean Platelet Volume 9.9 fL (9.1-12.4); NEUTROPHILS ABSOLUTE AUTO 1.76 K/mm3 (1.96-9.15); NEUTROPHILS PERCENT AUTO 45 % (41-73); Platelet Count 224 K/mm3 (150-400); RDW Standard Deviation 48.2 fL (35.1-46.3); Red Blood Cell Count 3.12 M/mm3 (3.80-5.20); White Blood Cell Count 3.91 K/mm3 (4.00-11.30)
[2018-09-09 05:48] LABS: Magnesium, Blood 2.1 mg/dL (1.6-2.4)
[2018-09-09 05:53] LABS: Alanine Aminotransfer (ALT/SGP 27 U/L (12-78); Albumin, Blood 2.8 g/dL (3.4-5.0); Albumin/Globulin Ratio 0.8 (0.8-1.8); Alk Phos 158 U/L (50-136); Anion Gap 6 mmol/L (6-16); Aspartate Aminotrans (AST/SGOT 25 U/L (12-37); Bilirubin, Total 0.2 mg/dL (0.1-1.0); Blood Urea Nitrogen 8 mg/dL (8-24); Bun/Creatinine Ratio 14.4 (12.0-20.0); CO2, Blood 29 mmol/L (21-32); Calcium, Blood 8.9 mg/dL (8.5-10.1); Chloride, Blood 102 mmol/L (98-108); Creatinine, Blood 0.56 mg/dL (0.40-1.00); Globulin, Blood 3.6 g/dL (2.2-4.0); Glomerular Filtration Rate >60 (60-); Glucose, Blood 115 mg/dL (70-99); Potassium, Blood 4.3 mmol/L (3.5-5.5); Sodium, Blood 137 mmol/L (136-145); Total Protein, Blood 6.4 g/dL (6.4-8.2)
--- NOTE | 2018-09-09 06:44 | NUR ---
SHIFT SUMMARY PT A/O INDEPENDENT IN ROOM. C/O PAIN IN ABD AND MEDICATED PER EMAR PRN X2. C/O NAUSEA AFTER EATING PUDDING AND MEDICATED PER EMAR X1. SHE WAS ABLE TO SLEEP OFF AND ON T/O NOC. CALL LIGHT IN REACH
--- NOTE | 2018-09-09 07:22 | NUR ---
ASSUMED CARE OF PT- RECIEVED REPORT FROM NIGHT BRITTANEY RASMUSSEN. PT RECIEVED PRN PAIN AND NAUSEA MEDICATION T/O THE NIGHT. PT BECAME TOO NAUSEOUS TO EAT ALL OF HER DINNER PER REPORT.
--- NOTE | 2018-09-09 19:31 | NUR ---
SHIFT SUMMARY- PT HAS HAD NO ACUTE CHANGES T/O THE SHIFT. PT ALERT AND ORIENTED AND INDEPENDENT IN THE ROOM, PRN IV DILAUDID CHANGED TO Q6. PT IS AWARE. PT SEEMS MORE COMFORTABLE THIS EVENING, NOT USING THE HEATING PAD AT THIS TIME, BUT IT IS AVAILABLE FOR HER AT THE BEDSIDE. PT HAS CALL LIGHT IN REACH AND USES IT APPROPRIATELY. [place] REPORT COMPLETED WITH BRITTANEY ZACARIAS.
[2018-09-10 05:05] LABS: BASOPHILS ABSOLUTE AUTO 0.02 K/mm3 (0.00-0.23); BASOPHILS PERCENT AUTO 0 % (0-2); EOSINOPHILS ABSOLUTE AUTO 0.41 K/mm3 (0.00-0.68); EOSINOPHILS PERCENT AUTO 9 % (0-6); Hematocrit 31.3 % (33.0-51.0); Hemoglobin 9.5 g/dL (11.5-16.0); IMMATURE GRAN ABSOLUTE AUTO 0.01 K/mm3 (0.00-0.10); IMMATURE GRAN PERCENT AUTO 0 % (0-1); LYMPHOCYTES ABSOLUTE AUTO 1.44 K/mm3 (0.84-5.20); LYMPHOCYTES PERCENT AUTO 31 % (21-46); MONOCYTES ABSOLUTE AUTO 0.42 K/mm3 (0.16-1.47); MONOCYTES PERCENT AUTO 9 % (4-13); Mean Corpuscular HGB 28.1 pg (26.0-34.0); Mean Corpuscular HGB Conc 30.4 g/dL (31.5-36.5); Mean Corpuscular Volume 93 fL (80-100); Mean Platelet Volume 9.9 fL (9.1-12.4); NEUTROPHILS PERCENT AUTO 50 % (41-73); Platelet Count 276 K/mm3 (150-400); Red Blood Cell Count 3.38 M/mm3 (3.80-5.20)
[2018-09-10 05:25] LABS: Alanine Aminotransfer (ALT/SGP 28 U/L (12-78); Albumin, Blood 3.1 g/dL (3.4-5.0); Albumin/Globulin Ratio 0.8 (0.8-1.8); Alk Phos 185 U/L (50-136); Anion Gap 7 mmol/L (6-16); Aspartate Aminotrans (AST/SGOT 26 U/L (12-37); Bilirubin, Total 0.1 mg/dL (0.1-1.0); Blood Urea Nitrogen 9 mg/dL (8-24); Bun/Creatinine Ratio 13.9 (12.0-20.0); CO2, Blood 31 mmol/L (21-32); Calcium, Blood 9.1 mg/dL (8.5-10.1); Chloride, Blood 100 mmol/L (98-108); Creatinine, Blood 0.65 mg/dL (0.40-1.00); Glomerular Filtration Rate >60 (60-); Glucose, Blood 125 mg/dL (70-99); Sodium, Blood 138 mmol/L (136-145); Total Protein, Blood 7.1 g/dL (6.4-8.2)
--- NOTE | 2018-09-10 05:43 | NUR ---
SHIFT SUMMARY: PT IS ALERT AND ORIENTED. PT IS CALM AND COOPERATIVE WITH CARE. PT CALLS APPROPRIATELY. PT IS INDEPENDENT IN THE ROOM. PT CONTINUES TO REPORT ABD PAIN, MEDICATING PER EMAR. PT REPORTS NAUSEA ON ONE OCCASION, GAVE PRN ZOFRAN. PT DENIES VOMITING AND SOB. POSSIBLE DC TO REHAB TODAY. NO ACUTE CHANGES OR COMPLICATIONS THIS SHIFT. BED IN LOW POSITION, CALL LIGHT WITHIN REACH. WILL REPORT TO DAY NURSE.
[2018-09-10] MEDS ORDERED: PREG50 PO (12:09)
--- NOTE | 2018-09-10 15:02 | NUR ---
DISCHARGE SUMMARY PATIENT GIVEN INFORMATION AND MEDICATIONS. NO ACUTE CONCERNS AT THIS TIME. SHE REPORTS THAT SHE IS READY TO GO. PATIENT WALKED OUT WITH HER MOTHER. PICC LINE REMOVED.
== END 2018-09-10 14:01 | disposition home or self-care (01) | DRG 439 ==
LOC: ER 11:47 → MEDS 15:14 → ENPENDDIS 09-10 11:08 → MEDS 09-10 14:01
PROVIDERS: Internal Medicine; Physician Assistant; ADMIT Internal Medicine
DX: K85.21 Alcohol induced acute pancreatitis with uninfected necrosis (principal); Z68.1 Body mass index [BMI] 19.9 or less, adult; E87.1 Hypo-osmolality and hyponatremia; E46 Unspecified protein-calorie malnutrition; E86.0 Dehydration; E87.6 Hypokalemia; F10.20 Alcohol dependence, uncomplicated; F17.210 Nicotine dependence, cigarettes, uncomplicated; K21.9 Gastro-esophageal reflux disease without esophagitis; K76.0 Fatty (change of) liver, not elsewhere classified; K86.1 Other chronic pancreatitis; Z91.038 Other insect allergy status; Z79.899 Other long term (current) drug therapy; K70.0 Alcoholic fatty liver
CPT/HCPCS: 36415; 80048; 80053; 81001; 82947; 83690; 83735; 84100; 84478; 85025; 85027; 86140; 87077; 87086; 87186; 93005; 93010; 96361; 96374; 96375; 99285-25; C9113; J1170; J1650; J2405; J2997; J3010; J3480; J7120

== ENCOUNTER 2019-04-03 16:14 | Observation (INO) | payer OTHER ==
[~2019-04-03] VITALS: Ht 175.3 cm; Wt 67.6 kg
[~2019-04-03 16:14] MED LIST changes: -BUPR100ER PO; +BUPR150ER PO; +PREG50 PO
[2019-04-03 17:21] LABS: Source, Urine Clean Catch
[2019-04-03 17:24] LABS: BASOPHILS ABSOLUTE AUTO 0.02 K/mm3 (0.00-0.23); BASOPHILS PERCENT AUTO 0 % (0-2); EOSINOPHILS ABSOLUTE AUTO 0.24 K/mm3 (0.00-0.68); EOSINOPHILS PERCENT AUTO 3 % (0-6); Hematocrit 40.5 % (33.0-51.0); IMMATURE GRAN ABSOLUTE AUTO 0.01 K/mm3 (0.00-0.10); IMMATURE GRAN PERCENT AUTO 0 % (0-1); LYMPHOCYTES PERCENT AUTO 49 % (21-46); MONOCYTES ABSOLUTE AUTO 0.48 K/mm3 (0.16-1.47); MONOCYTES PERCENT AUTO 6 % (4-13); Mean Corpuscular HGB 26.1 pg (26.0-34.0); Mean Corpuscular HGB Conc 32.1 g/dL (31.5-36.5); Mean Corpuscular Volume 81 fL (80-100); Mean Platelet Volume 9.2 fL (9.1-12.4); NEUTROPHILS ABSOLUTE AUTO 3.43 K/mm3 (1.96-9.15); NEUTROPHILS PERCENT AUTO 42 % (41-73); Platelet Count 272 K/mm3 (150-400); RDW Coefficient Variation 15.5 % (11.7-14.2); RDW Standard Deviation 45.9 fL (35.1-46.3); Red Blood Cell Count 4.99 M/mm3 (3.80-5.20); White Blood Cell Count 8.18 K/mm3 (4.00-11.30)
[2019-04-03 17:36] LABS: Bilirubin, Urine Neg (Neg); Blood, Urine Neg (Neg); Glucose Qualitative, Urine Neg (Neg); Ketones, Urine Neg (Neg); Leukocyte Esterase, Urine Neg (Neg); Nitrite, Urine Neg (Neg); Protein, Urine Neg (Neg); Specific Gravity, Urine 1.015 (1.003-1.022); Urobilinogen, Urine NORM (Normal); pH, Urine 6.5 (5.0-8.0)
[2019-04-03 17:45] LABS: Appearance, Urine Clear (Clear); Color, Urine Yellow (P-Yellow)
[2019-04-03 17:52] LABS: Alanine Aminotransfer (ALT/SGP 32 U/L (12-78); Albumin, Blood 3.5 g/dL (3.4-5.0); Alk Phos 106 U/L (50-136); Anion Gap 8 mmol/L (6-16); Aspartate Aminotrans (AST/SGOT 26 U/L (12-37); Bilirubin, Total 0.4 mg/dL (0.1-1.0); Blood Urea Nitrogen 17 mg/dL (8-24); Bun/Creatinine Ratio 28.4 (12.0-20.0); CO2, Blood 27 mmol/L (21-32); Calcium, Blood 8.2 mg/dL (8.5-10.1); Chloride, Blood 109 mmol/L (98-108); Globulin, Blood 3.4 g/dL (2.2-4.0); Glomerular Filtration Rate >60 (60-); Glucose, Blood 117 mg/dL (70-99); Potassium, Blood 3.5 mmol/L (3.5-5.5); Salicylate <1.7 mg/dL (2.8-20.0); Sodium, Blood 144 mmol/L (136-145); Total Protein, Blood 6.9 g/dL (6.4-8.2)
[2019-04-03 17:56] LABS: Thyroid Stimulating Hormone 0.437 uIU/mL (0.360-4.800)
[2019-04-03 17:57] LABS: Acetaminophen, Random <2.0 ug/mL (10.0-30.0); Ethanol (Alcohol), Blood, Med 315 mg/dL
[2019-04-03 18:23] LABS: U Amphetamine Screen Not Detected; U Barbituate Screen Not Detected; U Benzodiazapine Screen Not Detected; U Buprenorphine Screen Not Detected; U Cannabinoids Screen Not Detected; U Cocaine Screen Not Detected; U Methadone Screen Not Detected; U Methamphetamine Screen Not Detected; U Opiates Screen Not Detected; U Oxycodone Screen Not Detected; U Phencyclidine Screen Not Detected; U Propoxyphene Screen Not Detected
[2019-04-03] MEDS ORDERED: Prozac20 MG PO (21:14)
== END 2019-04-05 23:26 | disposition home or self-care (01) ==
LOC: ER 16:14 → EOR 20:59
PROVIDERS: Physician Assistant; ADMIT Emergency Medicine
DX: F33.2 Major depressive disorder, recurrent severe without psychotic features (principal); F10.20 Alcohol dependence, uncomplicated; F17.210 Nicotine dependence, cigarettes, uncomplicated; Z79.899 Other long term (current) drug therapy; Z91.14 Patient's other noncompliance with medication regimen; Z91.030 Bee allergy status
CPT/HCPCS: 36415; 80053; 81003; 81025; 83690; 84443; 85025; 99285; A9270; G0378; G0480; Q3014

== ENCOUNTER 2019-04-13 09:22 | Inpatient (IN) | payer OTHER ==
[~2019-04-13] VITALS: Ht 175.3 cm; Wt 68.0 kg
[~2019-04-13 09:22] MED LIST changes: +Prozac20 MG PO
[2019-04-13 10:21] LABS: Source, Urine Clean Catch
[2019-04-13 10:30] LABS: Blood, Urine 4+ (Neg); Glucose Qualitative, Urine Neg (Neg); Ketones, Urine 3+ (Neg); Leukocyte Esterase, Urine 2+ (Neg); Nitrite, Urine Neg (Neg); Protein, Urine 3+ (Neg); Urobilinogen, Urine 2+ (Normal); pH, Urine 6.5 (5.0-8.0)
[2019-04-13 10:39] LABS: Appearance, Urine Cloudy (Clear); Bilirubin, Urine 1+ (Neg); Color, Urine Amber (P-Yellow)
[2019-04-13 10:42] LABS: Bacteria Many /hpf; Mucus Heavy (0-Heavy); Red Blood Cells, Urine 25-50 /hpf (0-2); Squamous Epithelial Cells Few /hpf (Few)
[2019-04-13 10:43] LABS: Amorphous Light (0-Heavy)
[2019-04-13 10:56] LABS: U Amphetamine Screen Not Detected; U Barbituate Screen Not Detected; U Benzodiazapine Screen DETECTED; U Buprenorphine Screen Not Detected; U Cannabinoids Screen Not Detected; U Cocaine Screen Not Detected; U Methadone Screen Not Detected; U Methamphetamine Screen Not Detected; U Opiates Screen Not Detected; U Oxycodone Screen Not Detected; U Phencyclidine Screen Not Detected; U Propoxyphene Screen Not Detected
[2019-04-13 11:14] LABS: BASOPHILS PERCENT AUTO 0 % (0-2); EOSINOPHILS ABSOLUTE AUTO 0.01 K/mm3 (0.00-0.68); EOSINOPHILS PERCENT AUTO 0 % (0-6); Hematocrit 37.7 % (33.0-51.0); Hemoglobin 12.6 g/dL (11.5-16.0); IMMATURE GRAN ABSOLUTE AUTO 0.03 K/mm3 (0.00-0.10); IMMATURE GRAN PERCENT AUTO 0 % (0-1); LYMPHOCYTES ABSOLUTE AUTO 0.82 K/mm3 (0.84-5.20); LYMPHOCYTES PERCENT AUTO 8 % (21-46); MONOCYTES ABSOLUTE AUTO 1.04 K/mm3 (0.16-1.47); MONOCYTES PERCENT AUTO 10 % (4-13); Mean Corpuscular HGB Conc 33.4 g/dL (31.5-36.5); Mean Corpuscular Volume 81 fL (80-100); Mean Platelet Volume 10.1 fL (9.1-12.4); NEUTROPHILS ABSOLUTE AUTO 8.67 K/mm3 (1.96-9.15); NEUTROPHILS PERCENT AUTO 82 % (41-73); Platelet Count 126 K/mm3 (150-400); RDW Coefficient Variation 16.2 % (11.7-14.2); RDW Standard Deviation 44.8 fL (35.1-46.3); Red Blood Cell Count 4.66 M/mm3 (3.80-5.20); White Blood Cell Count 10.57 K/mm3 (4.00-11.30)
[2019-04-13 11:32] LABS: Beta HCG, Quantitative, Serum <1 mIU/mL (0-3); Ethanol (Alcohol), Blood, Med <3 mg/dL
[2019-04-13 11:38] LABS: Alanine Aminotransfer (ALT/SGP 33 U/L (12-78); Albumin, Blood 3.8 g/dL (3.4-5.0); Albumin/Globulin Ratio 1.2 (0.8-1.8); Alk Phos 106 U/L (50-136); Anion Gap 11 mmol/L (6-16); Aspartate Aminotrans (AST/SGOT 42 U/L (12-37); Bilirubin, Total 1.8 mg/dL (0.1-1.0); Blood Urea Nitrogen 18 mg/dL (8-24); Bun/Creatinine Ratio 35.2 (12.0-20.0); CO2, Blood 29 mmol/L (21-32); Calcium, Blood 8.8 mg/dL (8.5-10.1); Chloride, Blood 89 mmol/L (98-108); Creatinine, Blood 0.51 mg/dL (0.40-1.00); Globulin, Blood 3.2 g/dL (2.2-4.0); Glomerular Filtration Rate >60 (60-); Glucose, Blood 124 mg/dL (70-99); Potassium, Blood 3.1 mmol/L (3.5-5.5); Sodium, Blood 129 mmol/L (136-145)
--- NOTE | 2019-04-13 17:41 | NUR ---
PATIENT DID NOT EAT DINNER THIS SHIFT DUE TO BEING NPO AT THIS TIME.
--- NOTE | 2019-04-13 18:28 | NUR ---
IV SITE IS IN HER LFA NOT IN HER RAC.
--- NOTE | 2019-04-13 18:30 | NUR ---
SHE IS RESTING IN BED FRUSTRATED THAT SHE CANNOT SLEEP. SHE HAS RECEIVED DILAUDID X2 SINCE ARRIVAL TO 312 FROM THE ER. NO VOMITING BUT SAYS SHE IS STILL NAUSEATED. UP AD MICHAEL IN ROOM. NPO. IVF'S INFUSING AND K-RIDER ALSO INFUSING CONCURRENTLY. NEXT LAB DRAW AT 2000 TONIGHT.
[2019-04-14 05:27] LABS: Anion Gap 6 mmol/L (6-16); Blood Urea Nitrogen 8 mg/dL (8-24); Bun/Creatinine Ratio 13.7 (12.0-20.0); CO2, Blood 33 mmol/L (21-32); Calcium, Blood 8.5 mg/dL (8.5-10.1); Chloride, Blood 98 mmol/L (98-108); Creatinine, Blood 0.59 mg/dL (0.40-1.00); Glomerular Filtration Rate >60 (60-); Glucose, Blood 87 mg/dL (70-99); Potassium, Blood 3.4 mmol/L (3.5-5.5); Sodium, Blood 137 mmol/L (136-145)
--- NOTE | 2019-04-14 05:37 | NUR ---
SHIFT SUMMARY PT PLEASANT AND COOPERATIVE. A/O. INDEPENDENT IN THE ROOM. DID NOT SLEEP MUCH THIS EVENING. ONLY SLEEPING FOR SHORT AMOUNTS OF TIME INTERMITTENTLY. CONTINUES TO HAVE ABD PAIN IN LUQ RADIATING TO RUQ AND NAUSEA REQUIRING MEDICATION APPROX EVERY 2-3 HOURS. NO EPISODES OF VOMITING. PT REMAINED NPO THIS EVENING. VSS. RESTING IN BED AT THIS TIME. WILL CONTINUE TO MONITOR AND REPORT TO DAY RN.
--- NOTE | 2019-04-14 09:22 | NUR ---
PATIENT DID NOT EAT BREAKFAST THIS SHIFT DUE TO BEING NPO AT THIS TIME.
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
--- NOTE | 2019-04-14 15:24 | NUR ---
SHE HAS TOLERATED THE CHANGE FROM DILAUDID Q2 HRS TO FENTANYL Q3 HRS. SHE HAS STARTED CL'S. NO VOMITING. ZOFRAN AND PHENERGAN CONTINUE. SHE VOIDS WELL. SHE LIKES HER DOOR CLOSED AND HAS SLEPT INTERMITTENTLY TODAY.
--- NOTE | 2019-04-14 18:05 | NUR ---
SHE IS EATING HER CL DINNER TRAY SLOWLY. SHE HAS ALSO DRANK A LARGE AMT OF WATER TODAY AFTER NPO STATUS WAS REMOVED. SHE HAS GOOD RELIEF FROM FENTANYL. NO EMESIS. SHE HAS HAD PHENERGAN TWICE AND ZOFRAN TWICE. SHE VOIDS WELL. NO BM TODAY.
--- NOTE | 2019-04-15 03:28 | NUR ---
NOC SHIFT SUMMARY PT ADMITTED FOR PANCREATITIS SECONDARY TO ETOH ABUSE. SHE IS PLEASANT AND COOPERATIVE WITH CARE. CLEAR LIQUIDS DIET SHE HAS BEEN DRINKING ICE WATER AND TOLERATING IT WELL. REQUESTED MELATONIN TO HELP HER SLEEP. SHE HAS BEEN TREATED FOR ONGOING ABD PAIN PER EMAR. SLEPT RELATIVELY WELL THIS NIGHT THOUGH SHE HAS AWOKEN WITH ABD PAIN REQUIRING FENTYNAL. VSS. APPEARS TO BE IN NO ACUTE DISTRESS AT THIS TIME. WILL CONTINUE TO MONITOR.
--- NOTE | 2019-04-15 17:48 | NUR ---
SUMMARY: ADMITTED FOR PANCREATITIS. NO ACUTE CHANGE. VSS. PT MADE NPO THIS AM AND MONITORED FOR PAIN/ NAUSEA. PT DID NOT REPORT ANY PAIN OR NAUSEA TODAY. TOOK SERVERAL WALKS IN [place]SE. DR. MEDEL MADE AWARE THAT PT WAS FEELING BETTER. DIET ADVANCED TO REGULAR FOR DINNER. WILL CTM AND REPORT TO EDSON QUISPE.
[2019-04-16 05:58] LABS: Anion Gap 9 mmol/L (6-16); Blood Urea Nitrogen 7 mg/dL (8-24); Bun/Creatinine Ratio 14.4 (12.0-20.0); CO2, Blood 30 mmol/L (21-32); Calcium, Blood 8.8 mg/dL (8.5-10.1); Chloride, Blood 98 mmol/L (98-108); Creatinine, Blood 0.49 mg/dL (0.40-1.00); Glomerular Filtration Rate >60 (60-); Glucose, Blood 93 mg/dL (70-99); Sodium, Blood 137 mmol/L (136-145)
--- NOTE | 2019-04-16 06:24 | NUR ---
NOC SHIFT SUMMARY PT IS PLEASANT AND COOPERATIVE WITH CARE THIS NIGHT. FEELING TALKATIVE. SHE DENIES NAUSEA AND STATES HER ABLD PAIN IS IMPROVED. VSS. SLEPT MUCH OF NIGHT. NO ACUTE CHANGES NOTED AND APPEARS IN NO ACUTE DISTRESS. WILL CONTINUE TO MONITOR.
--- NOTE | 2019-04-16 08:39 | NUR ---
POTASSIUM ORDERED. PER DR. MEDEL 40 MEQ PO POTASSIUM CHLORIDE ORDERED.
[2019-04-16] MEDS ORDERED: ONDA4ODT MM (09:41)
[2019-04-16] MEDS ORDERED: POTA10T PO (09:42)
--- NOTE | 2019-04-16 10:35 | NUR ---
PT DISCHARGED PT DISCHARGED IN STABLE CONDITION AT 1035. VSS. PT EDUCATED ON DC INSTRUCTIONS & DENIED FURTHER NEED FOR INSTRUCTION. PT DENIED WHEELCHAIR RIDE OUT OF HOSPITAL & WALKED OUT OF BUILDING TO DRIVE HERSELF HOME.
== END 2019-04-16 10:35 | disposition home or self-care (01) | DRG 439 ==
LOC: ER 09:22 → MEDS 09:44
PROVIDERS: Emergency Medicine; ADMIT Internal Medicine
DX: K85.20 Alcohol induced acute pancreatitis without necrosis or infection (principal); E87.1 Hypo-osmolality and hyponatremia; F10.20 Alcohol dependence, uncomplicated; E87.6 Hypokalemia; F32.9 Major depressive disorder, single episode, unspecified; Z87.891 Personal history of nicotine dependence
CPT/HCPCS: 36415; 80048; 80053; 81001; 83690; 84132; 84702; 85025; 87086; 96361; 96365; 96366; 96374; 96375; 96376; 99284-25; G0378; G0480; J1170; J2405; J2550; J3010; J3480; J7120

== ENCOUNTER 2019-05-10 08:49 | Inpatient (IN) | payer OTHER ==
[~2019-05-10] VITALS: Ht 175.3 cm; Wt 65.1 kg
[~2019-05-10 08:49] MED LIST changes: +POTA10T PO
[2019-05-10 09:30] LABS: Blood, Urine 1+ (Neg); Glucose Qualitative, Urine Neg (Neg); Ketones, Urine 4+ (Neg); Leukocyte Esterase, Urine 1+ (Neg); Nitrite, Urine Neg (Neg); Protein, Urine 2+ (Neg); Source, Urine Voided; Specific Gravity, Urine 1.015 (1.003-1.022); Urobilinogen, Urine 2+ (Normal)
[2019-05-10 09:42] LABS: BASOPHILS ABSOLUTE AUTO 0.02 K/mm3 (0.00-0.23); BASOPHILS PERCENT AUTO 0 % (0-2); EOSINOPHILS ABSOLUTE AUTO 0.23 K/mm3 (0.00-0.68); EOSINOPHILS PERCENT AUTO 3 % (0-6); Hematocrit 39.3 % (33.0-51.0); Hemoglobin 12.7 g/dL (11.5-16.0); IMMATURE GRAN ABSOLUTE AUTO 0.03 K/mm3 (0.00-0.10); IMMATURE GRAN PERCENT AUTO 0 % (0-1); LYMPHOCYTES ABSOLUTE AUTO 0.91 K/mm3 (0.84-5.20); LYMPHOCYTES PERCENT AUTO 13 % (21-46); MONOCYTES PERCENT AUTO 3 % (4-13); Mean Corpuscular HGB 29.6 pg (26.0-34.0); Mean Corpuscular HGB Conc 32.3 g/dL (31.5-36.5); Mean Corpuscular Volume 92 fL (80-100); NEUTROPHILS ABSOLUTE AUTO 5.46 K/mm3 (1.96-9.15); NEUTROPHILS PERCENT AUTO 80 % (41-73); Platelet Count 97 K/mm3 (150-400); RDW Standard Deviation 65.6 fL (35.1-46.3); Red Blood Cell Count 4.29 M/mm3 (3.80-5.20); White Blood Cell Count 6.85 K/mm3 (4.00-11.30)
[2019-05-10 09:43] LABS: Bilirubin, Urine 1+ (Neg)
[2019-05-10 09:44] LABS: Appearance, Urine Hazy (Clear); Color, Urine Yellow (P-Yellow)
[2019-05-10 09:45] LABS: Bacteria Many /hpf; Red Blood Cells, Urine 0-2 /hpf (0-2); Squamous Epithelial Cells Many /hpf (Few)
[2019-05-10 09:46] LABS: Mucus Heavy (0-Heavy)
[2019-05-10 10:05] LABS: Alanine Aminotransfer (ALT/SGP 593 U/L (12-78); Albumin, Blood 3.7 g/dL (3.4-5.0); Albumin/Globulin Ratio 1.1 (0.8-1.8); Alk Phos 117 U/L (50-136); Anion Gap 12 mmol/L (6-16); Bilirubin, Total 1.3 mg/dL (0.1-1.0); Blood Urea Nitrogen 15 mg/dL (8-24); Bun/Creatinine Ratio 28.8 (12.0-20.0); CO2, Blood 21 mmol/L (21-32); Calcium, Blood 8.6 mg/dL (8.5-10.1); Chloride, Blood 101 mmol/L (98-108); Creatinine, Blood 0.52 mg/dL (0.40-1.00); Ethanol (Alcohol), Blood, Med <3 mg/dL; Globulin, Blood 3.5 g/dL (2.2-4.0); Glomerular Filtration Rate >60 (60-); Glucose, Blood 90 mg/dL (70-99); Magnesium, Blood 1.6 mg/dL (1.6-2.4); Sodium, Blood 134 mmol/L (136-145); Total Protein, Blood 7.2 g/dL (6.4-8.2)
[2019-05-10 10:14] LABS: Aspartate Aminotrans (AST/SGOT 2345 U/L (12-37)
--- NOTE | 2019-05-10 15:53 | NUR ---
ORIENTED TO ROOM. CALL LIGHT WITHIN REACH. PT VERBALIZED UNDERSTANDING OF FREQUENT ROUNDING. BED LOW AND IN LOCKED POSITION.
--- NOTE | 2019-05-10 16:26 | NUR ---
EDUCATED ON DVT PROPHALAXYSIS. PT REFUSED TESS APARICIO AND SCD'S.
--- NOTE | 2019-05-11 05:49 | NUR ---
SHIFT SUMMARY PT REPORTS PAIN TO THE LUQ THAT RADIATES TO THE L SIDE/FLANK AREA. PT REQUESTS DILAUDID INSTEAD OF FENTANYL, URSZULA DOES NOT WANT TO RECIEVE DILAUDID. WILL REMAIN ON 50 MCG FENTANYL Q6H AND TORADOL Q6H REGIMEN. NS RUNNING @ 150 ML/HR FOR TOTAL OF 3 BAGS; 2ND BAG INFUSING AT THIS TIME. PT NPO. PG TO CELSO IS PATENT AND FLUSHING WELL; DRAWING BLOOD WITH THIS AM LABS, CAPS CHANGED. WILL CONT TO MONITOR AND PROVIDE CARE UNTIL PRESUMED BY ONCOMING RN.
[2019-05-11 06:58] LABS: Alanine Aminotransfer (ALT/SGP 279 U/L (12-78); Albumin, Blood 2.6 g/dL (3.4-5.0); Alk Phos 92 U/L (50-136); Anion Gap 8 mmol/L (6-16); Aspartate Aminotrans (AST/SGOT 594 U/L (12-37); Bilirubin, Total 0.5 mg/dL (0.1-1.0); Blood Urea Nitrogen 6 mg/dL (8-24); Bun/Creatinine Ratio 13.4 (12.0-20.0); CO2, Blood 18 mmol/L (21-32); Calcium, Blood 7.6 mg/dL (8.5-10.1); Chloride, Blood 114 mmol/L (98-108); Creatinine, Blood 0.45 mg/dL (0.40-1.00); Globulin, Blood 2.7 g/dL (2.2-4.0); Glomerular Filtration Rate >60 (60-); Glucose, Blood 59 mg/dL (70-99); Potassium, Blood 4.1 mmol/L (3.5-5.5); Sodium, Blood 140 mmol/L (136-145); Total Protein, Blood 5.3 g/dL (6.4-8.2)
[2019-05-11 07:01] LABS: Alanine Aminotransfer (ALT/SGP 277 U/L (12-78); Albumin, Blood 2.6 g/dL (3.4-5.0); Alk Phos 90 U/L (50-136); Anion Gap 9 mmol/L (6-16); Aspartate Aminotrans (AST/SGOT 631 U/L (12-37); Bilirubin, Total 0.6 mg/dL (0.1-1.0); Blood Urea Nitrogen 7 mg/dL (8-24); Bun/Creatinine Ratio 15.7 (12.0-20.0); CO2, Blood 17 mmol/L (21-32); Calcium, Blood 7.5 mg/dL (8.5-10.1); Chloride, Blood 114 mmol/L (98-108); Creatinine, Blood 0.45 mg/dL (0.40-1.00); Globulin, Blood 2.5 g/dL (2.2-4.0); Glomerular Filtration Rate >60 (60-); Glucose, Blood 58 mg/dL (70-99); Potassium, Blood 3.9 mmol/L (3.5-5.5); Sodium, Blood 140 mmol/L (136-145); Total Protein, Blood 5.1 g/dL (6.4-8.2)
--- NOTE | 2019-05-11 15:17 | NUR ---
SUMMARY PT IS A/O X4, PLEASANT AFFECT, SHE IS IND IN ROOM. THIS AM LIPASE LEVEL ELEVATED HOWEVER IMPROVING @ 730, LFT'S CONTINUE ELEVATED, ALSO IMPROVING. SHE STATE CONTINUING UPPER ABD PAIN, HAVE GIVEN TORADOL & FENTANYL FOR RELIEF/CONTROL. SHE STATE DESIRE TO TRY CL'S THIS AM, DR PADILLA IN TO ASSESS, STATE OK TO ADV TO CL DIET. SHE HAS BEEN TAKING CAUTIOUSLY, SLOWLY SINCE LUNCH, APPEARS TO BE TOLERATING WELL. SHE HAS BEEN OUT OF ROOM AMBULATING IN ROSE W ENCOURAGEMENT. VSS.
[2019-05-12 00:06] LABS: HBSAG SCREEN Negative (Negative); HEP A AB, IGM Negative (Negative); HEP B CORE AB, IGM Negative (Negative); HEP C VIRUS AB <0.1 (0.0-0.9)
--- NOTE | 2019-05-12 04:33 | NUR ---
SHIFT SUMMARY PT CONTINUES TO ABD DISCOMFORT AND TX PER EMAR. PT HAS SLEPT SOME. PT DENIES ANY ISSUES WITH NAUSEA. NO ISSUES NOTED. PT CURRENTLY AWAKE WATCHING TV. CALL LIGHT IN REACH.
[2019-05-12 05:39] LABS: Mean Platelet Volume 9.1 fL (9.1-12.4); Platelet Count 95 K/mm3 (150-400)
[2019-05-12 06:00] LABS: Alanine Aminotransfer (ALT/SGP 189 U/L (12-78); Albumin, Blood 2.7 g/dL (3.4-5.0); Alk Phos 96 U/L (50-136); Anion Gap 9 mmol/L (6-16); Aspartate Aminotrans (AST/SGOT 198 U/L (12-37); Bilirubin, Total 0.7 mg/dL (0.1-1.0); Blood Urea Nitrogen 2 mg/dL (8-24); Bun/Creatinine Ratio 4.5 (12.0-20.0); CO2, Blood 18 mmol/L (21-32); Calcium, Blood 8.1 mg/dL (8.5-10.1); Chloride, Blood 111 mmol/L (98-108); Creatinine, Blood 0.44 mg/dL (0.40-1.00); Globulin, Blood 2.8 g/dL (2.2-4.0); Glomerular Filtration Rate >60 (60-); Glucose, Blood 103 mg/dL (70-99); Potassium, Blood 3.7 mmol/L (3.5-5.5); Sodium, Blood 138 mmol/L (136-145); Total Protein, Blood 5.5 g/dL (6.4-8.2)
[2019-05-12] MEDS ORDERED: ONDA4ODT MM (14:20)
[2019-05-12] MEDS ORDERED: KETO10 PO (14:21)
--- NOTE | 2019-05-12 15:10 | NUR ---
discharge DR ANGELA IN TO SEE PT THIS AM, REVIEW LABS. PT STATE TOLERATING CL DIET W/O NAUSEA, STATE CONTINUING UPPER ABD PAIN HOWEVER HOPEFUL TO GO HOME TODAY. ADV DIET TO SOFT, STATE IF PT ABLE TO TOLERATE SHE MAY GO HOME AFTER LUNCH. PT WAS ABLE TO EAT SOFT LUNCH, CONTINUES TO STATE FEELING IMPROVED. DR ANGELA PLACE D/C ORDERS. PG IV STEPHANIE D/C INTACT. D/C INSTRUCT REVIEWED w PT. SHE IS PLEASANT, APPRECIATIVE, AMBULATES IND FROM HOSP.
== END 2019-05-12 14:44 | disposition home or self-care (01) | DRG 439 ==
LOC: ER 08:49 → MEDS 12:00 → ENPENDDIS 05-12 13:44 → MEDS 05-12 14:44
PROVIDERS: Emergency Medicine; ADMIT Internal Medicine
DX: K85.20 Alcohol induced acute pancreatitis without necrosis or infection (principal); E87.1 Hypo-osmolality and hyponatremia; K86.3 Pseudocyst of pancreas; E87.6 Hypokalemia; E86.0 Dehydration; K21.9 Gastro-esophageal reflux disease without esophagitis; K86.1 Other chronic pancreatitis; D69.6 Thrombocytopenia, unspecified; F17.210 Nicotine dependence, cigarettes, uncomplicated
CPT/HCPCS: 36415; 74176; 80053; 80074; 81001; 81025; 83690; 83735; 85025; 85049; 93005; 93010; 96361; 96365; 96366; 96375; 99285-25; C1751; C9113; G0480; J1170; J1885; J2405; J3010; J3480; J7030

== ENCOUNTER 2019-05-24 07:17 | Inpatient (IN) | payer OTHER ==
[~2019-05-24] VITALS: Ht 175.3 cm; Wt 63.5 kg
[2019-05-24 08:45] LABS: BASOPHILS ABSOLUTE AUTO 0.02 K/mm3 (0.00-0.23); BASOPHILS PERCENT AUTO 0 % (0-2); EOSINOPHILS ABSOLUTE AUTO 0.05 K/mm3 (0.00-0.68); EOSINOPHILS PERCENT AUTO 1 % (0-6); Hematocrit 38.3 % (33.0-51.0); Hemoglobin 12.1 g/dL (11.5-16.0); IMMATURE GRAN ABSOLUTE AUTO 0.03 K/mm3 (0.00-0.10); IMMATURE GRAN PERCENT AUTO 0 % (0-1); LYMPHOCYTES ABSOLUTE AUTO 0.39 K/mm3 (0.84-5.20); LYMPHOCYTES PERCENT AUTO 6 % (21-46); MONOCYTES ABSOLUTE AUTO 0.18 K/mm3 (0.16-1.47); MONOCYTES PERCENT AUTO 3 % (4-13); Mean Corpuscular HGB 29.4 pg (26.0-34.0); Mean Corpuscular HGB Conc 31.6 g/dL (31.5-36.5); Mean Corpuscular Volume 93 fL (80-100); Mean Platelet Volume 10.5 fL (9.1-12.4); NEUTROPHILS ABSOLUTE AUTO 6.06 K/mm3 (1.96-9.15); NEUTROPHILS PERCENT AUTO 90 % (41-73); Platelet Count 170 K/mm3 (150-400); RDW Standard Deviation 71.6 fL (35.1-46.3); Red Blood Cell Count 4.11 M/mm3 (3.80-5.20); White Blood Cell Count 6.73 K/mm3 (4.00-11.30)
[2019-05-24 09:11] LABS: Albumin, Blood 2.9 g/dL (3.4-5.0); Albumin/Globulin Ratio 0.9 (0.8-1.8); Alk Phos 174 U/L (50-136); Anion Gap 11 mmol/L (6-16); Bilirubin, Total 2.5 mg/dL (0.1-1.0); Blood Urea Nitrogen 14 mg/dL (8-24); CO2, Blood 24 mmol/L (21-32); Chloride, Blood 99 mmol/L (98-108); Creatinine, Blood 0.45 mg/dL (0.40-1.00); Ethanol (Alcohol), Blood, Med <3 mg/dL; Globulin, Blood 3.4 g/dL (2.2-4.0); Glomerular Filtration Rate >60 (60-); Glucose, Blood 73 mg/dL (70-99); Potassium, Blood 4.1 mmol/L (3.5-5.5); Sodium, Blood 134 mmol/L (136-145); Total Protein, Blood 6.3 g/dL (6.4-8.2)
[2019-05-24 09:24] LABS: Alanine Aminotransfer (ALT/SGP 1682 U/L (12-78); Aspartate Aminotrans (AST/SGOT 7263 U/L (12-37)
[2019-05-24 16:02] LABS: Source, Urine Clean Catch
[2019-05-24 16:13] LABS: Appearance, Urine Clear (Clear); Bilirubin, Urine Neg (Neg); Blood, Urine 1+ (Neg); Color, Urine Yellow (P-Yellow); Glucose Qualitative, Urine Neg (Neg); Ketones, Urine 4+ (Neg); Leukocyte Esterase, Urine 1+ (Neg); Nitrite, Urine Neg (Neg); Protein, Urine 2+ (Neg); Urobilinogen, Urine 2+ (Normal); pH, Urine 6.5 (5.0-8.0)
[2019-05-24 16:28] LABS: Bacteria Rare /hpf; Red Blood Cells, Urine 0-2 /hpf (0-2); Squamous Epithelial Cells Few /hpf (Few); White Blood Cells, Urine 0-2 /hpf (0-5)
--- NOTE | 2019-05-24 17:53 | NUR ---
ALERT. ORIENTED. ARRIVES TO FLOOR ABOUT 1515 IN W/C. STS LAST DRINK WAS 4 DAYS AGO. HAS BEEN THROUGH REHAB. IV PATENT. GIVEN ICE WATER TO DIP MOUTH SPONGES IN. UNLABORED RESPIRATIONS. TELE ON AND PER Memamp SR IN '. WCTM.
--- NOTE | 2019-05-25 04:20 | NUR ---
Shift summary. Pt c/o severe abdominal pain every two hours during the night. fentanyl given q two hours during the night. Pt states fentanyl giving adequate relief but doesn't last long enough. No nausea or vomiting reported. Pt up to br on own. VSS.
[2019-05-25 05:21] LABS: BASOPHILS ABSOLUTE AUTO 0.02 K/mm3 (0.00-0.23); BASOPHILS PERCENT AUTO 1 % (0-2); EOSINOPHILS ABSOLUTE AUTO 0.18 K/mm3 (0.00-0.68); EOSINOPHILS PERCENT AUTO 5 % (0-6); Hematocrit 33.8 % (33.0-51.0); Hemoglobin 10.5 g/dL (11.5-16.0); Mean Corpuscular HGB 30.3 pg (26.0-34.0); Mean Corpuscular HGB Conc 31.1 g/dL (31.5-36.5); RDW Coefficient Variation 20.5 % (11.7-14.2); Red Blood Cell Count 3.47 M/mm3 (3.80-5.20); White Blood Cell Count 4.04 K/mm3 (4.00-11.30)
[2019-05-25 05:38] LABS: IMMATURE GRAN ABSOLUTE AUTO 0.01 K/mm3 (0.00-0.10); IMMATURE GRAN PERCENT AUTO 0 % (0-1); LYMPHOCYTES ABSOLUTE AUTO 0.96 K/mm3 (0.84-5.20); LYMPHOCYTES PERCENT AUTO 24 % (21-46); MONOCYTES PERCENT AUTO 3 % (4-13); Mean Corpuscular Volume 97 fL (80-100); Mean Platelet Volume 10.8 fL (9.1-12.4); NEUTROPHILS ABSOLUTE AUTO 2.77 K/mm3 (1.96-9.15); NEUTROPHILS PERCENT AUTO 69 % (41-73); Platelet Count 115 K/mm3 (150-400)
[2019-05-25 05:50] LABS: Alanine Aminotransfer (ALT/SGP 984 U/L (12-78); Albumin, Blood 2.5 g/dL (3.4-5.0); Alk Phos 149 U/L (50-136); Amylase, Blood 87 U/L (25-115); Anion Gap 12 mmol/L (6-16); Bilirubin, Total 1.3 mg/dL (0.1-1.0); Blood Urea Nitrogen 7 mg/dL (8-24); Bun/Creatinine Ratio 14.6 (12.0-20.0); CO2, Blood 20 mmol/L (21-32); Calcium, Blood 7.6 mg/dL (8.5-10.1); Chloride, Blood 106 mmol/L (98-108); Creatinine, Blood 0.48 mg/dL (0.40-1.00); Globulin, Blood 2.6 g/dL (2.2-4.0); Glomerular Filtration Rate >60 (60-); Glucose, Blood 57 mg/dL (70-99); Potassium, Blood 3.2 mmol/L (3.5-5.5); Sodium, Blood 138 mmol/L (136-145); Total Protein, Blood 5.1 g/dL (6.4-8.2)
[2019-05-25 06:01] LABS: Aspartate Aminotrans (AST/SGOT 2250 U/L (12-37)
[2019-05-25 11:14] LABS: International Normalized Ratio 1.38; Prothrombin Time Results 14.2 Sec (9.7-11.5)
[2019-05-25 11:19] LABS: Magnesium, Blood 1.7 mg/dL (1.6-2.4)
[2019-05-25 11:20] LABS: Acetaminophen, Random <2.0 ug/mL (10.0-30.0)
--- NOTE | 2019-05-25 14:54 | NUR ---
INCREASED TO FULL LIQUID PT REQUESTING A REGULAR DIET. INFO RELAYED TO DR. GAO. PT ADVANCED TO FULL LIQUID DIET FOR DINNER. WILL CONTINUE TO MONITOR.
--- NOTE | 2019-05-25 17:47 | NUR ---
SHIFT SUMMARY PT ADVANCED TO FULL LIQUID DIET. TOLERATING WELL. PT SEEN BY DR. WORTHY THIS SHIFT. LABS ORDERED TO BE ADDED TO AM LABS PER DR. WORTHY. PT LENGTHENING TIME BETWEEN PAIN MEDS. SEE EMAR. NO OTHER CHANGES IN ASSESSMENT AT THIS TIME. VSS. WILL CONTINUE TO MONITOR UNTIL TURNOVER IS COMPLETE.
--- NOTE | 2019-05-26 05:09 | NUR ---
SHIFT SUMMARY: PT A&O X4. VSS T/O SHIFT. PT C/O PAIN IN LUQ AND UPPER ABD. PAIN MANAGED WITH 50MCG OF FENTANYL Q2 PER EMAR. GIVEN K PAD THIS MORNING FOR COMFORT. SHILOH FULL LIQ DIET. DENIES N/V. INDEPENDENT IN ROOM. VOIDING WELL. NSR ON TELE.
[2019-05-26 05:57] LABS: International Normalized Ratio 1.11; Prothrombin Time Results 11.7 Sec (9.7-11.5)
[2019-05-26 06:07] LABS: Alanine Aminotransfer (ALT/SGP 647 U/L (12-78); Albumin, Blood 2.7 g/dL (3.4-5.0); Albumin/Globulin Ratio 0.9 (0.8-1.8); Alk Phos 162 U/L (50-136); Anion Gap 5 mmol/L (6-16); Aspartate Aminotrans (AST/SGOT 564 U/L (12-37); Bilirubin, Total 1.1 mg/dL (0.1-1.0); Blood Urea Nitrogen 2 mg/dL (8-24); Bun/Creatinine Ratio 4.2 (12.0-20.0); CO2, Blood 27 mmol/L (21-32); Calcium, Blood 8.1 mg/dL (8.5-10.1); Chloride, Blood 107 mmol/L (98-108); Creatinine, Blood 0.48 mg/dL (0.40-1.00); Glomerular Filtration Rate >60 (60-); Glucose, Blood 108 mg/dL (70-99); Potassium, Blood 3.1 mmol/L (3.5-5.5); Sodium, Blood 139 mmol/L (136-145); Total Protein, Blood 5.7 g/dL (6.4-8.2)
[2019-05-26 06:08] LABS: HBSAG SCREEN Negative (Negative)
[2019-05-26 06:08] LABS: HBSAG SCREEN Negative (Negative); HEP A AB, IGM Negative (Negative); HEP B CORE AB, IGM Negative (Negative); HEP C VIRUS AB <0.1 (0.0-0.9)
--- NOTE | 2019-05-26 14:02 | NUR ---
PT REQUESTED PAIN MEDICATION AT ABOUT 1345. PT WAS DROWSY BUT ALERT ENOUGH THAT NURSE AND PATIENT WERE ABLE TO CONVERSE ABOUT PT PAIN. NURSE PULLED MEDICATION FROM PYXIS AND THEN WENT INTO PATIENT ROOM. PT WAS SLEEPING AND WAS NOT ABLE TO CARRY ON A CONVERSATION. NURSE HELD THAT PAIN MEDICATION FOR SEDATION. MEDICATION WASTED WITH KHUSHI MCCLAIN RN.
--- NOTE | 2019-05-26 14:11 | NUR ---
PATIENT'S PCP MALIK GAN CALLED AT ABOUT 1100 AND REQUESTED TO SPEAK WITH PT'S NURSE. PT STATED THAT SHE GAVE PERMISSION FOR NURSE TO DISCUSS HER CARE WITH HER PCP. MALIK STATED THAT HER OFFICE HAS BEEN TRYING TO CONTACT HER FOR HER APPOINTMENTS AND THEY HAVE NOT BEEN ABLE TO REACH PT. PATIENT STATES THAT HER INSURANCE WAS IN QUESTION AND THAT IS WHY SHE MISSED HER APPOINTMENTS. MALIK REQUESTED THAT WE SCHEDULE PT'S APPOINTMENT PRIOR TO DC. NURSE GAVE MALIK PT'S UPDATED PHONE NUMBER.
--- NOTE | 2019-05-26 17:44 | NUR ---
SHIFT SUMMARY PT AXO, PLEASANT AND COOPERATIVE WITH CARE THOUGH EMOTIONAL AT TIMES. AT START OF SHIFT, PT STATED THAT SHE THOUGHT HER PAIN WAS R/T BEING VERY HUNGRY AND THAT THE "RUMBLING" OF HER BELLY "CAUSED MORE PAIN." DIET ORDER "ADVANCE TOLERATED" WAS PLACED. PT REQUESTED A SANDWICH. SINCE EATING THAT AND A FEW BITES OF LUNCH, HAS COMPLAINED OF INCREASED PAIN. DR GAO NOTIFIED. DIET ORDER CHANGED BACK TO FULL LIQUID FOR NOW. PT UP AD MICHAEL IN THE ROOM AND IS CURRENTLY WALKING AROUND THE UNIT. AMBULATION ENCOURAGED. PT MEDICATED FOR GAS PER EMAR. DR WORTHY STARTED AN ORAL PAIN MED. PT STATES THIS MED "DID NOT REALLY HELP WITH THE PAIN." PT WAS DROWSY THOUGH. BED IN LOW POSITION, CALL LIGHT WITHIN REACH.
[2019-05-27 05:33] LABS: Alanine Aminotransfer (ALT/SGP 456 U/L (12-78); Albumin, Blood 2.7 g/dL (3.4-5.0); Alk Phos 145 U/L (50-136); Anion Gap 7 mmol/L (6-16); Aspartate Aminotrans (AST/SGOT 197 U/L (12-37); Bilirubin, Total 0.8 mg/dL (0.1-1.0); Blood Urea Nitrogen 1 mg/dL (8-24); Bun/Creatinine Ratio 2.1 (12.0-20.0); CO2, Blood 26 mmol/L (21-32); Calcium, Blood 8.5 mg/dL (8.5-10.1); Chloride, Blood 104 mmol/L (98-108); Creatinine, Blood 0.47 mg/dL (0.40-1.00); Globulin, Blood 2.8 g/dL (2.2-4.0); Glomerular Filtration Rate >60 (60-); Glucose, Blood 100 mg/dL (70-99); Potassium, Blood 3.6 mmol/L (3.5-5.5); Sodium, Blood 137 mmol/L (136-145); Total Protein, Blood 5.5 g/dL (6.4-8.2)
--- NOTE | 2019-05-27 05:46 | NUR ---
CONTINUES TO VERBALIZE SEVERE PAIN ABOUT EVERY 2 HRS (SEE MAR) AT WHICH TIME FENTANYL IS ADMINISTERED. VOICED THAT THE OTHER ANALGESICS ARE NOT EFFECTIVE. zOFRAN ADMINISTERED A FEW TIMES WELL FOR NAUSEA. NO NOTED EMESIS. VOICED INABILITY TO EAT, EVEN THOUGH SHE FELT HUNGRY. CALL LIGHT IN REACH. WILL MONITOR. VSS
[2019-05-27 07:08] LABS: COMPLEMENT C3, SERUM 78 mg/dL (82-167); COMPLEMENT C4, SERUM 19 mg/dL (14-44)
[2019-05-27 12:19] LABS: BASOPHILS ABSOLUTE AUTO 0.02 K/mm3 (0.00-0.23); BASOPHILS PERCENT AUTO 0 % (0-2); EOSINOPHILS ABSOLUTE AUTO 0.24 K/mm3 (0.00-0.68); EOSINOPHILS PERCENT AUTO 4 % (0-6); Hematocrit 37.2 % (33.0-51.0); Hemoglobin 11.6 g/dL (11.5-16.0); IMMATURE GRAN ABSOLUTE AUTO 0.02 K/mm3 (0.00-0.10); IMMATURE GRAN PERCENT AUTO 0 % (0-1); LYMPHOCYTES PERCENT AUTO 30 % (21-46); MONOCYTES ABSOLUTE AUTO 0.53 K/mm3 (0.16-1.47); MONOCYTES PERCENT AUTO 8 % (4-13); Mean Corpuscular HGB 30.4 pg (26.0-34.0); Mean Corpuscular HGB Conc 31.2 g/dL (31.5-36.5); Mean Corpuscular Volume 97 fL (80-100); Mean Platelet Volume 10.1 fL (9.1-12.4); NEUTROPHILS ABSOLUTE AUTO 3.66 K/mm3 (1.96-9.15); NEUTROPHILS PERCENT AUTO 58 % (41-73); Platelet Count 139 K/mm3 (150-400); RDW Coefficient Variation 21.1 % (11.7-14.2); RDW Standard Deviation 75.8 fL (35.1-46.3); Red Blood Cell Count 3.82 M/mm3 (3.80-5.20); White Blood Cell Count 6.37 K/mm3 (4.00-11.30)
[2019-05-27 14:06] LABS: ANTI-DSDNA ANTIBODIES <1 IU/mL (0-9); RNP ANTIBODIES <0.2 AI (0.0-0.9); SJOGREN'S ANTI-SS-A <0.2 AI (0.0-0.9); SJOGREN'S ANTI-SS-B <0.2 AI (0.0-0.9); SMITH ANTIBODIES <0.2 AI (0.0-0.9)
--- NOTE | 2019-05-27 17:40 | NUR ---
SHIFT SUMMARY PT DID NOT EAT MORE THAN A FEW TINY BITES THIS SHIFT. HER DIET IS BACK TO CLEAR LIQUID. BUT HER ABDOMINAL PAIN IS SUCH THAT SHE IS REFUSING TO EAT. SHE HAS REQUIRED IV FENTANYL Q 2 HRS. AND OXYCODONE TABLET Q 6. IV ZOFRAN IS AVAILABLE FOR NAUSEA. SHE IS INDEPENDENT IN THE ROOM AND TOOK A SHOWER TODAY. LR WAS STARTED TODAY @ 100 ML/HR.
--- NOTE | 2019-05-28 04:13 | NUR ---
SHIFT SUMMARY: 33 Y/O FEMALE HAD RESTLESS NIGHT WITH ABDOMINAL PAIN, PT GIVEN ALTERNATING DOSAGES OF OXYCODONE 5MG AND FENTANYL 50MCG WITH RELIEF FELT, PT HAPPY AND COOPERATIVE, DENIES BM, VOIDING WITHOUT ISSUE, BED LOW POSITION, CALL LIGHT AT SIDE.
[2019-05-28 11:49] LABS: Alanine Aminotransfer (ALT/SGP 339 U/L (12-78); Alk Phos 142 U/L (50-136); Anion Gap 7 mmol/L (6-16); Aspartate Aminotrans (AST/SGOT 89 U/L (12-37); Bilirubin, Total 0.8 mg/dL (0.1-1.0); Blood Urea Nitrogen 1 mg/dL (8-24); Bun/Creatinine Ratio 2.2 (12.0-20.0); CO2, Blood 29 mmol/L (21-32); Calcium, Blood 8.6 mg/dL (8.5-10.1); Chloride, Blood 103 mmol/L (98-108); Creatinine, Blood 0.45 mg/dL (0.40-1.00); Globulin, Blood 3.1 g/dL (2.2-4.0); Glomerular Filtration Rate >60 (60-); Glucose, Blood 92 mg/dL (70-99); Potassium, Blood 3.7 mmol/L (3.5-5.5); Sodium, Blood 139 mmol/L (136-145); Total Protein, Blood 6.1 g/dL (6.4-8.2)
[2019-05-28] MEDS ORDERED: ZENPEP DR 20,01 EACH PO (14:57)
[2019-05-28] MEDS ORDERED: TRAM50 PO (14:58)
[2019-05-28 15:06] LABS: CMV QUANT DNA PCR (PLASMA) Negative (Negative)
--- NOTE | 2019-05-28 16:14 | NUR ---
DISCHARGE NOTE MEDICATIONS FAXED TO PREFERED PHARMACY. HARDCOPY PRESCRIPTION PROVIDED TO THE PT. IV DC'D WNL. PT PROVIDED WITH HARDCOPY AND VERBAL INSTRUCTIONS FOR DISCHARGE RE: DIAGNOSES, MEDICATIONS, DIET INSTRUCTIONS, FOLLOW UP APPOINTMENTS. PT HAD NO FURTHER QUESTIONS. PT DRESSED IN PERSONAL CLOTHES AND INDEPENDENTLY AMBULATED TO HER PERSONAL VEHICLE
[2019-05-29 19:06] LABS: HBV IU/ML HBV DNA not detected IU/mL (.)
== END 2019-05-28 15:32 | disposition home or self-care (01) | DRG 439 ==
LOC: ER 07:17 → MEDS 14:33
PROVIDERS: Emergency Medicine; Internal Medicine Gastroenterology; Nurse Practitioner Acute Care; ADMIT Family Medicine
DX: K85.20 Alcohol induced acute pancreatitis without necrosis or infection (principal); K86.3 Pseudocyst of pancreas; T85.628A Displacement of other specified internal prosthetic devices, implants and grafts, initial encounter; K21.9 Gastro-esophageal reflux disease without esophagitis; F32.9 Major depressive disorder, single episode, unspecified; D69.6 Thrombocytopenia, unspecified; E87.6 Hypokalemia; R79.89 Other specified abnormal findings of blood chemistry; K76.0 Fatty (change of) liver, not elsewhere classified; D64.9 Anemia, unspecified; F17.210 Nicotine dependence, cigarettes, uncomplicated
CPT/HCPCS: 36415; 74177; 76705; 80053; 80074; 81001; 81025; 82150; 82390; 83605; 83690; 83735; 85025; 85610; 86038; 86140; 86160; 86225; 86235; 87040; 87086; 87340; 87497; 87517; 87798; 96361; 96374-59; 96375; 96376; 99285-25; A9270; C9113; G0480; J1650; J1885; J2405; J3010; J3480; J7030; J7120; Q9967

== ENCOUNTER 2019-05-29 19:30 | Observation (INO) | payer OTHER ==
[~2019-05-29] VITALS: Ht 175.3 cm; Wt 63.5 kg
[~2019-05-29 19:30] MED LIST changes: +ZENPEP DR 20,01 EACH PO
[2019-05-29 20:30] LABS: BASOPHILS ABSOLUTE AUTO 0.04 K/mm3 (0.00-0.23); BASOPHILS PERCENT AUTO 1 % (0-2); EOSINOPHILS ABSOLUTE AUTO 0.38 K/mm3 (0.00-0.68); EOSINOPHILS PERCENT AUTO 5 % (0-6); Hematocrit 36.8 % (33.0-51.0); Hemoglobin 11.8 g/dL (11.5-16.0); IMMATURE GRAN ABSOLUTE AUTO 0.02 K/mm3 (0.00-0.10); IMMATURE GRAN PERCENT AUTO 0 % (0-1); LYMPHOCYTES ABSOLUTE AUTO 3.19 K/mm3 (0.84-5.20); LYMPHOCYTES PERCENT AUTO 42 % (21-46); MONOCYTES PERCENT AUTO 8 % (4-13); Mean Corpuscular HGB 30.4 pg (26.0-34.0); Mean Corpuscular HGB Conc 32.1 g/dL (31.5-36.5); Mean Corpuscular Volume 95 fL (80-100); Mean Platelet Volume 10.3 fL (9.1-12.4); NEUTROPHILS ABSOLUTE AUTO 3.46 K/mm3 (1.96-9.15); NEUTROPHILS PERCENT AUTO 45 % (41-73); Platelet Count 196 K/mm3 (150-400); RDW Coefficient Variation 21.2 % (11.7-14.2); RDW Standard Deviation 73.5 fL (35.1-46.3); Red Blood Cell Count 3.88 M/mm3 (3.80-5.20); White Blood Cell Count 7.69 K/mm3 (4.00-11.30)
[2019-05-29 20:54] LABS: Acetaminophen, Random <2.0 ug/mL (10.0-30.0); Alanine Aminotransfer (ALT/SGP 255 U/L (12-78); Albumin, Blood 3.3 g/dL (3.4-5.0); Albumin/Globulin Ratio 0.9 (0.8-1.8); Alk Phos 140 U/L (50-136); Anion Gap 9 mmol/L (6-16); Aspartate Aminotrans (AST/SGOT 48 U/L (12-37); Bilirubin, Total 0.6 mg/dL (0.1-1.0); Blood Urea Nitrogen 2 mg/dL (8-24); Bun/Creatinine Ratio 4.2 (12.0-20.0); CO2, Blood 29 mmol/L (21-32); Calcium, Blood 8.5 mg/dL (8.5-10.1); Chloride, Blood 105 mmol/L (98-108); Creatinine, Blood 0.48 mg/dL (0.40-1.00); Ethanol (Alcohol), Blood, Med 295 mg/dL; Globulin, Blood 3.6 g/dL (2.2-4.0); Glomerular Filtration Rate >60 (60-); Glucose, Blood 92 mg/dL (70-99); Potassium, Blood 2.9 mmol/L (3.5-5.5); Salicylate <1.7 mg/dL (2.8-20.0); Sodium, Blood 143 mmol/L (136-145); Total Protein, Blood 6.9 g/dL (6.4-8.2)
[2019-05-29 20:56] LABS: Thyroid Stimulating Hormone 0.794 uIU/mL (0.360-4.800)
[2019-05-29 21:12] LABS: Source, Urine Clean Catch
[2019-05-29 21:17] LABS: Bilirubin, Urine Neg (Neg); Blood, Urine Neg (Neg); Glucose Qualitative, Urine Neg (Neg); Ketones, Urine Neg (Neg); Leukocyte Esterase, Urine 1+ (Neg); Nitrite, Urine Neg (Neg); Protein, Urine Neg (Neg); Specific Gravity, Urine 1.005 (1.003-1.022); Urobilinogen, Urine NORM (Normal)
[2019-05-29 21:24] LABS: Appearance, Urine Clear (Clear); Color, Urine Yellow (P-Yellow)
[2019-05-29 21:26] LABS: Bacteria Rare /hpf; Red Blood Cells, Urine 0-2 /hpf (0-2); Squamous Epithelial Cells Few /hpf (Few)
[2019-05-29 21:35] LABS: U Amphetamine Screen Not Detected; U Barbituate Screen Not Detected; U Benzodiazapine Screen Not Detected; U Buprenorphine Screen Not Detected; U Cannabinoids Screen Not Detected; U Cocaine Screen Not Detected; U Methadone Screen Not Detected; U Methamphetamine Screen Not Detected; U Opiates Screen Not Detected; U Oxycodone Screen Not Detected; U Phencyclidine Screen Not Detected; U Propoxyphene Screen Not Detected
[2019-05-30 17:55] LABS: Calcium, Ionized (POC) 1.18 mmol/L (1.10-1.46); Chloride (POC) 100 mmol/L (98-108); Creatinine (POC) 0.4 mg/dL (0.6-1.0); Glucose (ISTAT POC) 91 mg/dL (70-99); Hemoglobin (POC) 12.2 g/dL (12.0-16.0); Potassium (POC) 3.5 mmol/L (3.5-5.5); Sodium (POC) 139 mmol/L (135-148); Total CO2 (POC) 33 mmol/L (21-32)
== END 2019-05-30 18:15 | disposition home or self-care (01) ==
LOC: ER 19:30 → EOR 19:31
PROVIDERS: Physician Assistant; ADMIT Emergency Medicine
DX: F33.9 Major depressive disorder, recurrent, unspecified (principal); S61.512A Laceration without foreign body of left wrist, initial encounter; F10.229 Alcohol dependence with intoxication, unspecified; E87.6 Hypokalemia; F17.210 Nicotine dependence, cigarettes, uncomplicated; K85.90 Acute pancreatitis without necrosis or infection, unspecified; Z91.030 Bee allergy status; Z91.14 Patient's other noncompliance with medication regimen; Z59.0 Homelessness; X78.9XXA Intentional self-harm by unspecified sharp object, initial encounter; Y90.8 Blood alcohol level of 240 mg/100 ml or more
CPT/HCPCS: 36415; 80047; 80053; 81001; 81025; 83690; 84443; 85014; 85025; 87086; 90471; 90714; 99285-25; G0378; G0480

== ENCOUNTER 2019-06-10 19:12 | Emergency (ER) | payer OTHER ==
[~2019-06-10] VITALS: Ht 175.3 cm; Wt 63.5 kg
[2019-06-10 19:41] LABS: BASOPHILS ABSOLUTE AUTO 0.07 K/mm3 (0.00-0.23); BASOPHILS PERCENT AUTO 1 % (0-2); EOSINOPHILS ABSOLUTE AUTO 0.39 K/mm3 (0.00-0.68); EOSINOPHILS PERCENT AUTO 4 % (0-6); Hematocrit 39.9 % (33.0-51.0); Hemoglobin 12.9 g/dL (11.5-16.0); IMMATURE GRAN ABSOLUTE AUTO 0.02 K/mm3 (0.00-0.10); IMMATURE GRAN PERCENT AUTO 0 % (0-1); LYMPHOCYTES ABSOLUTE AUTO 3.29 K/mm3 (0.84-5.20); LYMPHOCYTES PERCENT AUTO 33 % (21-46); MONOCYTES ABSOLUTE AUTO 0.75 K/mm3 (0.16-1.47); MONOCYTES PERCENT AUTO 8 % (4-13); Mean Corpuscular HGB 30.1 pg (26.0-34.0); Mean Corpuscular HGB Conc 32.3 g/dL (31.5-36.5); Mean Corpuscular Volume 93 fL (80-100); NEUTROPHILS ABSOLUTE AUTO 5.53 K/mm3 (1.96-9.15); NEUTROPHILS PERCENT AUTO 55 % (41-73); Platelet Count 507 K/mm3 (150-400); RDW Standard Deviation 65.5 fL (35.1-46.3); Red Blood Cell Count 4.28 M/mm3 (3.80-5.20); White Blood Cell Count 10.05 K/mm3 (4.00-11.30)
[2019-06-10 20:00] LABS: Alanine Aminotransfer (ALT/SGP 34 U/L (12-78); Albumin, Blood 3.2 g/dL (3.4-5.0); Albumin/Globulin Ratio 0.7 (0.8-1.8); Alk Phos 168 U/L (50-136); Anion Gap 8 mmol/L (6-16); Aspartate Aminotrans (AST/SGOT 55 U/L (12-37); Bilirubin, Total 0.3 mg/dL (0.1-1.0); Blood Urea Nitrogen 5 mg/dL (8-24); CO2, Blood 26 mmol/L (21-32); Calcium, Blood 8.9 mg/dL (8.5-10.1); Chloride, Blood 103 mmol/L (98-108); Creatinine, Blood 0.46 mg/dL (0.40-1.00); Globulin, Blood 4.4 g/dL (2.2-4.0); Glomerular Filtration Rate >60 (60-); Glucose, Blood 116 mg/dL (70-99); Potassium, Blood 3.2 mmol/L (3.5-5.5); Sodium, Blood 137 mmol/L (136-145); Total Protein, Blood 7.6 g/dL (6.4-8.2)
== END 2019-06-10 21:10 | disposition home or self-care (01) ==
LOC: ER 19:12
PROVIDERS: Physician Assistant
DX: K29.70 Gastritis, unspecified, without bleeding (principal); E87.6 Hypokalemia; Z87.440 Personal history of urinary (tract) infections; Z91.030 Bee allergy status
CPT/HCPCS: 36415; 80053; 83690; 85025; 96361; 96374; 96375; 99284-25; G0480; J2405; J3010; J7030